=== PATIENT | female | born 1990 | race Caucasian/White ===

== ENCOUNTER 2020-07-29 10:29 | Outpatient (CLI) | payer OTHER, SELFPAY ==
[2020-07-29 11:36] LABS: HCG Quant, Pregnancy 691 mIU/mL (1-3)
== END 2020-07-29 10:30 | disposition home or self-care (01) ==
PROVIDERS: PCP Nurse Practitioner Adult Health; Visit Provider Nurse Practitioner Women's Health
DX: O20.9 Hemorrhage in early pregnancy, unspecified (principal)
CPT/HCPCS: 36415; 84702

== ENCOUNTER 2020-07-31 02:51 | Outpatient (CLI) | payer OTHER, SELFPAY ==
[2020-07-31 12:25] LABS: HCG Quant, Pregnancy 1858 mIU/mL (1-3)
== END 2020-07-31 02:52 | disposition home or self-care (01) ==
LOC: LBO 02:51
PROVIDERS: PCP Nurse Practitioner Adult Health; Visit Provider Nurse Practitioner Women's Health
DX: O20.9 Hemorrhage in early pregnancy, unspecified (principal)
CPT/HCPCS: 36415; 84702

== ENCOUNTER 2020-08-13 04:05 | Outpatient (CLI) | payer OTHER, SELFPAY ==
[2020-08-13 10:27] LABS: Glucose,1 Hr (Glucola) 59 mg/dL (80-140)
== END 2020-08-13 04:06 | disposition home or self-care (01) ==
LOC: LBO 04:05
PROVIDERS: PCP Nurse Practitioner Adult Health; Visit Provider Advanced Practice Midwife
DX: O99.211 Obesity complicating pregnancy, first trimester
CPT/HCPCS: 36415; 82950

== ENCOUNTER 2020-08-31 03:46 | Outpatient (CLI) | payer OTHER, SELFPAY ==
[2020-08-31 10:30] LABS: Abs Immature Grans 0.01 10^3/uL (0.0-0.06); Absolute Basophil Count 0.02 10^3/uL (0.0-0.2); Absolute Eosinophil Count 0.03 10^3/uL (0.0-0.7); Absolute Lymphocyte Count 1.93 10^3/uL (1.2-3.4); Absolute Monocyte Count 0.44 10^3/uL (0.1-0.8); Absolute Neutrophil Count 5.44 10^3/uL (1.2-6.7); Basophils % 0.3; Eosinophils % 0.4; HCT 36.5 % (36.0-46.0); HGB 12.5 g/dL (11.2-15.7); Immature Grans % 0.1; Lymphocytes % 24.5; MCH 30.6 pg (27.0-33.0); MCHC 34.2 % (32.0-36.0); MCV 89.5 fL (80-95); MPV 9.1 fL (8.0-11.0); Monocytes % 5.6; Neutrophils % 69.1; Nucleated RBC 0 %; Platelet Count 321 10^3/uL (130-400); RBC 4.08 10^6/uL (3.93-5.22); RDW 12.2 % (11.7-14.6); RDW-SD 40.1 fL; WBC 7.87 10^3/uL (4.4-10.8)
[2020-08-31 11:38] LABS: TSH (W/Ref FT4) 0.62 uIU/mL (0.36-3.74)
[2020-08-31 11:43] LABS: *AMPHETAMINES SCREEN URINE Negative (Negative); *BARBITURATES SCREEN URINE Negative (Negative); *BENZODIAZEPINES SCREEN URINE Negative (Negative); Cannabinoids THC Negative (Negative); Cocaine Screen,Urine Negative (Negative); METHADONE URINE SCREEN Negative (Negative); OPIATES URINE SCREEN Negative (Negative)
[2020-08-31 11:46] LABS: Tricyclic Antidepressants Negative (Negative)
[2020-08-31 11:48] LABS: ALT 20 U/L (14-59); AST 10 U/L (15-37); Albumin 3.9 g/dL (3.4-5.0); Alkaline Phosphatase 33 U/L (46-116); Anion Gap 11.7 mmol/L (3-11); BUN 6 mg/dL (7-18); Bilirubin, Total 0.4 mg/dL (0.2-1.0); CO2 23.3 mmol/L (21.0-32.0); CREATININE 0.6 mg/dL (0.55-1.02); Calcium 8.9 mg/dL (8.5-10.1); Chloride 103 mmol/L (98-107); Glucose 96 mg/dL (74-106); Potassium 4.1 mmol/L (3.5-5.1); Sodium 138 mmol/L (136-145); Total Protein 7.2 g/dL (6.4-8.2)
[2020-09-01 08:57] LABS: Hepatitis B Surface Ag Negative (Negative)
[2020-09-01 09:26] LABS: Hepatitis C Ab w Rflx HCV PCR Negative (Negative)
[2020-09-01 09:33] LABS: HIV-1/2 Ag & Ab Screen Negative (Negative)
[2020-09-01 10:00] LABS: Varicella IgG Antibody Negative (See Note)
[2020-09-01 10:05] LABS: Rubella IgG Ab (UVM) Positive (See Note)
[2020-09-01 12:02] LABS: HSV 1 DNA Result Negative (Negative); HSV 2 DNA Result Negative (Negative)
[2020-09-01 15:35] LABS: Chlamydia Result Negative (Negative); GC Result Negative (Negative)
[2020-09-01 15:58] LABS: Syphilis Total Ab w/Reflex Nonreactive (Nonreactive)
[2020-09-03 10:10] LABS: Buprenorphine Negative ng/mL (Cutoff: 5.0); Norbuprenorphine Negative ng/mL (Cutoff: 2.5)
== END 2020-08-31 03:47 | disposition home or self-care (01) ==
LOC: LBO 03:46
PROVIDERS: PCP Nurse Practitioner Adult Health; Visit Provider Advanced Practice Midwife
DX: Z34.91 Encounter for supervision of normal pregnancy, unspecified, first trimester (principal); Z11.59 Encounter for screening for other viral diseases; Z11.4 Encounter for screening for human immunodeficiency virus [HIV]; Z01.84 Encounter for antibody response examination; Z11.3 Encounter for screening for infections with a predominantly sexual mode of transmission
CPT/HCPCS: 36415; 80053; 80307; 86787; 86803; 86850; 86900; 86901; 87340; 87389; 87491; 87529; 87591; 84443; 85025; 86762; 86780; 87086

== ENCOUNTER 2020-12-04 12:46 | Observation (INO) | payer OTHER, SELFPAY ==
[2020-12-04 12:58] VITALS: BP 133/71; PULSE 118; RESP 16; TEMP 36.8
[2020-12-04 13:00] VITALS: BP 133/71; PULSE 118
--- NOTE | 2020-12-04 13:04 | HPE_ITS ---
Date of service: 12/04/20 Time of Service: 13:04 Assessment and Plan Assessment and plan (1) Vaginal discharge during in second trimester: Status: Acute Assessment and plan: SSE done, cervix thick and closed, no fluid or blood in vagina. Obtained vaginal pathogen as well as urine culture. Will notify patient of results at home as indicated. Patient will be discharged to home now that she is reassured and will keep next scheduled appointment or call CNM environmental field services technician as needed.JENNIE OB-HPI Labor/Delivery History of Present Illness Reason for Visit: NST Chief Complaint: Other (pink tinged vaginal discharge times one today, no pain.JENNIE). MARILEE Calculator Estimated Delivery Date Method Current WG Current Estimate 03/30/21 Ultrasound #1 23w 3d Other Estimates 03/21/21 LMP (Certain) 24w 5d 04/01/21 Ultrasound #2 23w 1d History of Present Expected Delivery Route/Plan - CNSangita/ collab d/t chronic HTN FOB/ - Juancarlos Castaneda (his first child) BG Varicella non-immune, vaccinate Stage1 chronic HTN without medication: ACOG rec for IOL 38-40 wks Specific Issues/Plan 1. BMI >30, early glucola = 59 2. Low dose ASA starting @ 12 wks for risk of pre-e: nulliparity & BMI of 37 (81mg/162mg alternating) 2a. BP's prior to 20 wk 130's/80's, consistent with chronic HTN, stage 1 3. FOB has acquired (viral) dilated cardiomyopathy, on transplant wait-list 4. Received Covid vaccine; FOB is vaccinated 5. Prefers B.P. taken at the end of the visit. 6. Anxiety - no medications 7. Declines all genetic testing 8. Varicella non immune 9. Serology for HSV is negative for both types 1 & 2 Assessment: History Reviewed & Current Review of Systems All systems reviewed & are unremarkable except as noted in HPI and below PFSH Family History (Updated 08/31/20 @ 08:58 by Antonella Pal CNM) Father Diabetes Hypertension Maternal Grandmother Muscular dystrophy Social History (Updated 07/27/20 @ 09:57 by Lisa Sheets NP) Smoking risk assessment performed?: No current occupation: ICU Nurse at [employer] Do you think of yourself as: straight/heterosexual Female Reproductive History Menstrual control method: natural family planning History History 1 Para 0 Hx # Term Pregnancies 0 Multiple births 0 Hx # Pregnancies 0 Ectopic pregnancies 0 AB induced 0 Hx Number of Living Children 0 AB spontaneous 0 Meds Allergies and Home Medications Allergies Allergy/AdvReac Type Severity Reaction Status Date / Time No Known Allergies Allergy Verified 11/25/20 08:45 Home Medications Medication Instructions Recorded Confirmed Type lactobacillus combination no.8 3 3,000 mmu cells PO DAILY 07/27/20 History billion cell capsule prenat.vits,hui,[id number] 1 tab PO DAILY 07/27/20 History cholecalciferol (vitamin D3) 125 See Rx Instructions PO DAILY 08/12/20 History mcg (5,000 unit) tablet magnesium oxide 400 mg PO DAILY 08/31/20 History aspirin 81 mg tablet,delayed 81 mg PO DAILY #60 tab 11/25/20 11/25/20 Rx release omeprazole 20 mg capsule,delayed 20 mg PO DAILY #30 cap 11/25/20 11/25/20 Rx release Exam Physical Exam Vital signs: Temp Pulse Resp BP 98.2 F 118 H 16 133/71 12/04/20 12:58 12/04/20 13:00 12/04/20 12:58 12/04/20 13:00 Vital Signs Reviewed: Yes Notable Details: HR is elevated but patient was very anxious and stressed.JENNIE Constitutional Constitutional: mild distress and obese Comments: reports she has anxiety at baseline but that seeing some pink on toilet tissue today made her extremely anxious.JENNIE Detailed Labor and Delivery Exam Dilation: 0 Effacement (%): 0 Fields Score: Cervical Points Exam 0 1 2 3 Dilation Closed 1-2cm 3-4 cm 5-6cm Effacement 0-30% 40-50% 60-70% 80% Consistency Firm Medium Soft Station -3 -2 -1,0 +1,+2 Position Posterior Mid Anterior Contraction Frequency(min): soft to palpation Risk Assessment Risk for Shoulder Dystocia Historical/Initial OB: POSITIVE FOR: Pre- BMI>30; NEGATIVE FOR: Pelvic Abnormality, Previous Shoulder Dystocia or Previous Macrosomia Risk for Pre-Eclampsia Date Initiated/Initials: will advise to begin low dose ASA at 12 wks. JK Yes, if one or more: POSTIVE FOR: Chronic HTN; NEGATIVE FOR: Hx Pre-E/Gest HTN, Multiple Gestation, Pre-gestational DM, Renal Disease, Systemic Lupus or APA Syndrome Yes, if 2 or more: POSITIVE FOR: Nulliparity and BMI>30; NEGATIVE FOR: Age>= 35 yrs, >10yr btwn pregnancies, ethinicty, Mother/Sister w/ Pre-E or Previous IUGR Risk for Post- Hemorrhage Initial: NEGATIVE FOR: Multiple Gestation, Previous PPH, Known Clotting Deficiency, Grand Multiparity or Anticoagulation Risks Reviewed Risks Reviewed Upon Admission: No
--- NOTE | 2020-12-04 13:08 | W.PM.OBDISCH ---
Date of service: 12/04/20 Time of Service: 13:08 DS: Diagnosis Discharge Diagnosis (1) Vaginal discharge during in second trimester: Status: Acute Discharge Plan Discharge Details Reason For Visit: NST Attending Provider: Antonella Morgan Primary Care Provider: Zenaida Aviles Home Meds and New Rx's Prescriptions: No Action prenat.vits,hui,[id number] Tablet 1 tab PO DAILY RF: 0 Adult Probiotic 3 billion cell capsule 3,000 mmu cells PO DAILY RF: 0 cholecalciferol (vitamin D3) 125 mcg (5,000 unit) tablet See Rx Instructions PO DAILY RF: 0 aspirin 81 mg tablet,delayed release (DR/EC) 81 mg PO DAILY Qty: 60 RF: 3 omeprazole 20 mg capsule,delayed release(DR/EC) 20 mg PO DAILY Qty: 30 RF: 3 magnesium oxide 400 mg magnesium tablet 400 mg PO DAILY RF: 0 Discharge Instructions Activity:: Activity as Tolerated Activity:: Activity as Tolerated Equipment/Supplies:: No Equipment Needed Diet:: As Tolerated Discharge Data Discharge Physician: Antonella Morgan OB:DS Summary Contraception Discussed Contraception Discussed: No, Status at Discharge Functional status at discharge: independent ambulation Overall status at discharge: patient is back to baseline Mental Status: mental status grossly normal Speech and Movement: speech and movement normal Mood: congruent mood Affect: normal affect Exam Physical Exam Vital signs: Temp Pulse Resp BP 98.2 F 118 H 16 133/71 12/04/20 12:58 12/04/20 13:00 12/04/20 12:58 12/04/20 13:00 Vital Signs Reviewed: Yes Constitutional Constitutional: mild distress Comments: feels great relief when exam is done and there is no evidence of labor. HEENT Exam HEENT Exam: Normal Neck Exam Neck Exam: Not Done Respiratory Exam Respiratory Exam: Normal Cardiovascular Exam Cardiovascular Exam: Normal (mild tachycardia, likely related to axiety.) Abdominal Exam Comments: Fundus at U non tender to palpation. Rectal Exam Rectal Exam: Not Done Exam Patient deferred: external exam and perineal exam Perineum: Normal External: Present normal urethra appearance Comments: vagina normal on inspection with speculum, cervix appears closed and thick, no blood or abnormal discharge in vagina. Small amount of white physiologic appearing discharge noted. Culture for Vaginal pathogens obtaed. 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
--- NOTE | 2020-12-04 13:14 | DSE_ITS ---
Date of service: 12/04/20 Time of Service: 13:31 DS: Diagnosis Discharge Diagnosis (1) Vaginal discharge during in second trimester: Status: Acute Asessment and Plan: reassured once exam revealed no LOF or dilation. Culture for vaginal pathogen obtained and will notify of any abnormal results as indicated. Discharge Plan Disposition Patient Disposition: HOME Condition: Good Discharge Details Reason For Visit: NST Admit Date/Time: 12/04/20 12:46 Admit Provider: Antonella Morgan Attending Provider: Antonella Morgan Primary Care Provider: Stefan,[facility] Hospital Course Hospital Course: FHR 150's by doppler, SSE negative for dilation or blood. Reassured and discharged with warning signs reviewed. Home Meds and New Rx's Prescriptions: No Action prenat.vits,hui,[id number] Tablet 1 tab PO DAILY RF: 0 Adult Probiotic 3 billion cell capsule 3,000 mmu cells PO DAILY RF: 0 cholecalciferol (vitamin D3) 125 mcg (5,000 unit) tablet See Rx Instructions PO DAILY RF: 0 aspirin 81 mg tablet,delayed release (DR/EC) 81 mg PO DAILY Qty: 60 RF: 3 omeprazole 20 mg capsule,delayed release(DR/EC) 20 mg PO DAILY Qty: 30 RF: 3 magnesium oxide 400 mg magnesium tablet 400 mg PO DAILY RF: 0 Discharge Instructions Activity:: Activity as Tolerated Equipment/Supplies:: No Equipment Needed Diet:: As Tolerated Discharge Orders Discharge Orders: Discharge Order (Routine); Ordered 12/04/20 Ordered By: Antonella Morgan Discharge Data Discharge Date/Time-TO BE ENTERED AT DEPARTURE: 12/04/20 13:26 OB:DS Summary Contraception Discussed Contraception Discussed: No, Status at Discharge Functional status at discharge: independent ambulation Overall status at discharge: patient is back to baseline Mental Status: mental status grossly normal Speech and Movement: speech and movement normal Mood: congruent mood Affect: normal affect Exam Physical Exam Vital signs: Temp Pulse Resp BP 98.2 F 118 H 16 133/71 12/04/20 12:58 12/04/20 13:00 12/04/20 12:58 12/04/20 13:00 Vital Signs Reviewed: Yes Constitutional Constitutional: mild distress Comments: much more relaxed after exam was done. HEENT Exam HEENT Exam: Normal Neck Exam Neck Exam: Not Done Respiratory Exam Respiratory Exam: Normal Cardiovascular Exam Cardiovascular Exam: Normal (mild tachycardia due to anxiety.) Abdominal Exam Comments: abdomen benign, fundus soft and non tender. FHT 150's Rectal Exam Rectal Exam: Not Done Exam Comments: SSE reveals cervix is LTC and no blood or abnormal discharge. 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[employer] Do you think of yourself as: straight/heterosexual Female Reproductive History Menstrual control method: natural family planning History History 1 Para 0 Hx # Term Pregnancies 0 Multiple births 0 Hx # Pregnancies 0 Ectopic pregnancies 0 AB induced 0 Hx Number of Living Children 0 AB spontaneous 0 DS: Data Vitals/I&O Vitals and I&O: Vital Signs Temperature 98.2 F 12/04/20 12:58 Pulse 118 H 12/04/20 13:00 Respiratory Rate 16 12/04/20 12:58 Blood Pressure 133/71 12/04/20 13:00 Blood Pressure Mean 91 12/04/20 12:58 Data Completed and Pending Labs on day of discharge: 12/04/20 13:10 Urine - Clean Catch Urine Culture - Pending 12/04/20 13:10 Vaginal Vaginitis Screen - Pending Preliminary micro results at discharge 12/04/20 13:10 Urine Culture - Pending Urine - Clean Catch 12/04/20 13:10 Vaginitis Screen - Pending Vaginal
[2020-12-04 13:21] VITALS: PULSE 101; RESP 18; TEMP 36.6
[2020-12-07 01:04] VITALS: BP 113/69; PULSE 93
== END 2020-12-04 13:26 | disposition home or self-care (01) ==
LOC: OBS 13:15 → BCD 12-07 09:29
PROVIDERS: Admitting Provider Advanced Practice Midwife; PCP Nurse Practitioner Adult Health; Visit Provider Advanced Practice Midwife
DX: O26.892 Other specified pregnancy related conditions, second trimester (principal); N89.8 Other specified noninflammatory disorders of vagina; Z3A.23 23 weeks gestation of pregnancy
CPT/HCPCS: 87086; 87480; 87510; 87660; G0378

== ENCOUNTER 2021-01-07 04:10 | Outpatient (CLI) | payer OTHER, SELFPAY ==
[2021-01-07 10:49] LABS: HCT 33.4 % (36.0-46.0); HGB 11.1 g/dL (11.2-15.7); MCH 30.6 pg (27.0-33.0); MCHC 33.2 % (32.0-36.0); MPV 9.5 fL (8.0-11.0); Platelet Count 290 10^3/uL (130-400); RBC 3.63 10^6/uL (3.93-5.22); RDW 12.8 % (11.7-14.6); WBC 10.26 10^3/uL (4.4-10.8)
[2021-01-07 10:59] LABS: Glucose,1 Hr (Glucola) 180 mg/dL (80-140)
== END 2021-01-07 04:11 | disposition home or self-care (01) ==
LOC: LBO 04:10
PROVIDERS: Advanced Practice Midwife; PCP Nurse Practitioner Adult Health; Visit Provider Advanced Practice Midwife
DX: O99.810 Abnormal glucose complicating pregnancy (principal); Z3A.28 28 weeks gestation of pregnancy
CPT/HCPCS: 36415; 82950; 85027

== ENCOUNTER 2021-03-04 09:13 | Outpatient (CLI) | payer OTHER, SELFPAY ==
[2021-03-04 09:42] VITALS: BP 137/82; PULSE 86
[2021-03-04 09:43] VITALS: BP 137/82; PULSE 86; TEMP 36.8
[2021-03-04 10:10] VITALS: BP 133/82; PULSE 80
[2021-03-04 10:29] LABS: HCT 33.3 % (36.0-46.0); MCH 29.8 pg (27.0-33.0); MCV 90.2 fL (80-95); MPV 9.7 fL (8.0-11.0); Platelet Count 294 10^3/uL (130-400); RBC 3.69 10^6/uL (3.93-5.22); RDW 12.9 % (11.7-14.6); RDW-SD 42.1 fL; WBC 10.21 10^3/uL (4.4-10.8)
[2021-03-04 10:41] VITALS: BP 135/78; PULSE 104
[2021-03-04 10:43] LABS: ALT 30 U/L (14-59); AST 31 U/L (15-37); Albumin 2.9 g/dL (3.4-5.0); Alkaline Phosphatase 83 U/L (46-116); Anion Gap 9.9 mmol/L (3-11); BUN 3 mg/dL (7-18); Bilirubin, Total 0.3 mg/dL (0.2-1.0); CO2 24.1 mmol/L (21.0-32.0); CREATININE 0.6 mg/dL (0.55-1.02); Calcium 9.1 mg/dL (8.5-10.1); Chloride 103 mmol/L (98-107); Glucose 102 mg/dL (74-106); Potassium 3.6 mmol/L (3.5-5.1); Sodium 137 mmol/L (136-145); Total Protein 6.8 g/dL (6.4-8.2); Uric Acid 3.5 mg/dL (2.6-6.0)
[2021-03-04 10:59] LABS: COMMENT (LAB VIEW ONLY) 14.34 mg/dL; PROTEIN < 6.0 mg/dL
[2021-03-04 11:10] VITALS: BP 132/76; PULSE 77
--- NOTE | 2021-03-04 13:53 | W.OBNST ---
Date of service: 03/04/21 Time of Service: 13:53 NST Evaluation Reason for NST Reasons for Nonstress Test: CHRONIC HYPERTENSION Gestational Age Gestational Age in Weeks and Days: 36 Weeks and 2Days Test and Monitor Explained Test/Monitor Explained: Test Explained, Monitor Explained and Patient Verbalized Understanding Vital Signs Blood Pressure: 137/82 Pulse: 86 Temperature: 98.2 F Urine Results Urine Protein: Negative Urine Ketones: Negative Urine Glucose: Negative Urine Blood: Negative NST Information Date on Monitor: 03/04/21 Time on Monitor: 09:38 Date off Monitor: 03/04/21 Time off Monitor: 11:09 Total Time on Monitor: 91 NST Interventions: PO Hydration NST Evaluation Patient States Movement: Present FHR Baseline: 135 Variability: Moderate 6-25 bpm Accelerations: 15x15 Decelerations: None NST Results: Reactive Note NST Note Note: BP 132/76, labs done and nml, discharged to home NST Reviewed and Verified by: Nata Ramos
[2021-03-04 13:54] VITALS: BP 137/82; PULSE 86; TEMP 36.8
[2021-03-04 14:14] LABS: *AMPHETAMINES SCREEN URINE Negative (Negative); *BARBITURATES SCREEN URINE Negative (Negative); *BENZODIAZEPINES SCREEN URINE Negative (Negative); Cannabinoids THC Negative (Negative); Cocaine Screen,Urine Negative (Negative); METHADONE URINE SCREEN Negative (Negative); OPIATES URINE SCREEN Negative (Negative); Tricyclic Antidepressants Negative (Negative)
[2021-03-09 11:19] LABS: Buprenorphine Negative ng/mL (Cutoff: 5.0); Norbuprenorphine Negative ng/mL (Cutoff: 2.5)
== END 2021-03-04 11:26 | disposition home or self-care (01) ==
LOC: BCD 09:18 → OBS 09:33
PROVIDERS: Advanced Practice Midwife; PCP Nurse Practitioner Adult Health; Visit Provider Advanced Practice Midwife
DX: O10.013 Pre-existing essential hypertension complicating pregnancy, third trimester (principal); Z3A.36 36 weeks gestation of pregnancy
CPT/HCPCS: 36415; 80053; 80307; 85027; 59025; 82565; 84156; 84550; 87081

== ENCOUNTER 2021-03-12 07:53 | Outpatient (CLI) | payer OTHER, SELFPAY ==
[2021-03-12 10:11] VITALS: TEMP 36.9
[2021-03-12 10:34] VITALS: BP 139/82; PULSE 93
[2021-03-12 10:38] VITALS: BP 139/82; PULSE 14; TEMP 36.9
[2021-03-12 10:50] VITALS: BP 139/83; PULSE 100
--- NOTE | 2021-03-12 11:04 | W.OBNST ---
Date of service: 03/12/21 Time of Service: 11:04 NST Evaluation Reason for NST Reasons for Nonstress Test: GESTATIONAL HYPERTENSION Gestational Age Gestational Age in Weeks and Days: 37 Weeks and 3Days Test and Monitor Explained Test/Monitor Explained: Test Explained, Monitor Explained and Patient Verbalized Understanding Vital Signs Blood Pressure: 139/82 Pulse: 14 Temperature: 98.4 F NST Information Date on Monitor: 03/12/21 Time on Monitor: 10:10 Date off Monitor: 03/12/21 NST Interventions: PO Hydration NST Evaluation Patient States Movement: Present FHR Baseline: 140 Variability: Moderate 6-25 bpm Accelerations: 15x15 Decelerations: None NST Results: Reactive Note NST Note Note: Continue 2 x weekly NST. IOL planned at 38-39 weeks. NST Reviewed and Verified by: Antonella Pal
[2021-03-12 11:05] VITALS: BP 139/82; PULSE 14; TEMP 36.9
--- NOTE | 2021-03-12 11:54 | W.OBNST ---
Date of service: 03/12/21 Time of Service: 11:54 NST Evaluation Reason for NST Reasons for Nonstress Test: GESTATIONAL HYPERTENSION Gestational Age Gestational Age in Weeks and Days: 37 Weeks and 3Days Test and Monitor Explained Test/Monitor Explained: Test Explained, Monitor Explained and Patient Verbalized Understanding Vital Signs Blood Pressure: 139/82 Pulse: 14 Temperature: 98.4 F NST Information Date on Monitor: 03/12/21 Time on Monitor: 10:10 Date off Monitor: 03/12/21 NST Interventions: PO Hydration NST Evaluation Patient States Movement: Present FHR Baseline: 140 Variability: Moderate 6-25 bpm Accelerations: 15x15 Decelerations: None NST Results: Reactive Note NST Note Note: BP stable, is scheduled for IOL on 03/24/21. Is aware of pre-eclampsia warning signs. Will do twice weekly NST and return to office for visit as scheduled. JENNIE NST Reviewed and Verified by: Antonella Morgan
[2021-03-12 11:55] VITALS: BP 139/82; PULSE 14; TEMP 36.9
== END 2021-03-12 10:56 | disposition home or self-care (01) ==
LOC: BCD 08:06 → OBS 10:06
PROVIDERS: PCP Nurse Practitioner Adult Health; Visit Provider Advanced Practice Midwife
DX: O13.3 Gestational [pregnancy-induced] hypertension without significant proteinuria, third trimester (principal); Z3A.37 37 weeks gestation of pregnancy
CPT/HCPCS: 59025

== ENCOUNTER 2021-03-16 06:03 | Outpatient (CLI) | payer OTHER, SELFPAY ==
[2021-03-16 10:03] VITALS: BP 140/86; PULSE 103; TEMP 36.8
[2021-03-16 10:51] VITALS: BP 127/84; PULSE 112
[2021-03-16 11:13] LABS: HCT 33.6 % (36.0-46.0); MCH 29.4 pg (27.0-33.0); MCHC 32.7 % (32.0-36.0); MCV 89.8 fL (80-95); MPV 9.8 fL (8.0-11.0); Platelet Count 278 10^3/uL (130-400); RBC 3.74 10^6/uL (3.93-5.22); RDW 12.4 % (11.7-14.6); RDW-SD 40.3 fL; WBC 9.67 10^3/uL (4.4-10.8)
[2021-03-16 11:25] LABS: COMMENT (LAB VIEW ONLY) 23.16 mg/dL; PROTEIN < 6.0 mg/dL
[2021-03-16 11:31] LABS: ALT 20 U/L (14-59); AST 16 U/L (15-37); Albumin 2.6 g/dL (3.4-5.0); Alkaline Phosphatase 90 U/L (46-116); Anion Gap 10.9 mmol/L (3-11); BUN 5 mg/dL (7-18); Bilirubin, Total 0.2 mg/dL (0.2-1.0); CO2 22.1 mmol/L (21.0-32.0); CREATININE 0.7 mg/dL (0.55-1.02); Calcium 8.8 mg/dL (8.5-10.1); Chloride 103 mmol/L (98-107); Glucose 124 mg/dL (74-106); Potassium 3.7 mmol/L (3.5-5.1); Sodium 136 mmol/L (136-145); Total Protein 6.5 g/dL (6.4-8.2)
[2021-03-16 11:39] LABS: Uric Acid 3.7 mg/dL (2.6-6.0)
--- NOTE | 2021-03-16 12:34 | W.OBNST ---
Date of service: 03/16/21 Time of Service: 12:34 NST Evaluation Reason for NST Reasons for Nonstress Test: GESTATIONAL HYPERTENSION Gestational Age Gestational Age in Weeks and Days: 38 Weeks and 0Days Test and Monitor Explained Test/Monitor Explained: Test Explained, Monitor Explained and Patient Verbalized Understanding Vital Signs Blood Pressure: 127/84 Pulse: 112 Temperature: 98.2 F NST Information Date on Monitor: 03/16/21 Time on Monitor: 10:04 Date off Monitor: 03/16/21 Time off Monitor: 10:35 Total Time on Monitor: 31 NST Interventions: PO Hydration NST Evaluation Patient States Movement: Present FHR Baseline: 140 Variability: Moderate 6-25 bpm Accelerations: 15x15 Decelerations: None NST Results: Reactive Note NST Note Note: Preeclampsia labs drawn. I will call Nataliya with results. Symptoms of preeclampsia reviewed. Nataliya has decided to stop working at this time. IOL planned for 03/24. NST Reviewed and Verified by: Antonella Pal
[2021-03-16 12:42] VITALS: BP 127/84; PULSE 112; TEMP 36.8
== END 2021-03-16 11:00 | disposition home or self-care (01) ==
LOC: BCD 06:04 → OBS 10:02
PROVIDERS: PCP Nurse Practitioner Adult Health; Visit Provider Advanced Practice Midwife
DX: O13.3 Gestational [pregnancy-induced] hypertension without significant proteinuria, third trimester (principal); Z3A.38 38 weeks gestation of pregnancy
CPT/HCPCS: 59025; 36415; 80053; 85027; 82565; 84156; 84550

== ENCOUNTER 2021-03-19 07:28 | Outpatient (CLI) | payer OTHER, SELFPAY ==
[2021-03-19 10:21] VITALS: BP 133/83; PULSE 105; TEMP 36.5
[2021-03-19 13:22] VITALS: BP 133/83; PULSE 105; TEMP 36.5
--- NOTE | 2021-03-19 13:22 | W.OBNST ---
Date of service: 03/19/21 Time of Service: 13:22 NST Evaluation Reason for NST Reasons for Nonstress Test: GESTATIONAL HYPERTENSION Gestational Age Gestational Age in Weeks and Days: 38 Weeks and 3Days Test and Monitor Explained Test/Monitor Explained: Test Explained, Monitor Explained and Patient Verbalized Understanding Vital Signs Blood Pressure: 133/83 Pulse: 105 Temperature: 97.7 F Urine Results Urine Protein: Negative Urine Ketones: Negative Urine Glucose: Negative Urine Blood: Negative NST Information Date on Monitor: 03/19/21 Time on Monitor: 10:27 Date off Monitor: 03/19/21 Time off Monitor: 10:45 Total Time on Monitor: 18 NST Interventions: PO Hydration NST Evaluation Patient States Movement: Present FHR Baseline: 150 Variability: Moderate 6-25 bpm Accelerations: 15x15 Decelerations: None NST Results: Reactive Note NST Note NST Reviewed and Verified by: Nata Ramos
== END 2021-03-19 11:15 | disposition home or self-care (01) ==
LOC: BCD 07:30 → OBS 10:17
PROVIDERS: PCP Nurse Practitioner Adult Health; Visit Provider Advanced Practice Midwife
DX: O13.3 Gestational [pregnancy-induced] hypertension without significant proteinuria, third trimester (principal); Z3A.38 38 weeks gestation of pregnancy
CPT/HCPCS: 59025

== ENCOUNTER 2021-03-23 07:09 | Outpatient (CLI) | payer OTHER, SELFPAY ==
[2021-03-23 09:07] VITALS: BP 152/99; PULSE 108; TEMP 36.7
[2021-03-23 09:29] VITALS: BP 152/99; PULSE 108
[2021-03-23 09:34] VITALS: BP 128/74; PULSE 101
--- NOTE | 2021-03-23 10:18 | W.OBNST ---
Date of service: 03/23/21 Time of Service: 10:18 NST Evaluation Reason for NST Reasons for Nonstress Test: GESTATIONAL HYPERTENSION Gestational Age Gestational Age in Weeks and Days: 39 Weeks and 0Days Test and Monitor Explained Test/Monitor Explained: Test Explained, Monitor Explained and Patient Verbalized Understanding Vital Signs Blood Pressure: 128/74 (pt's upper left arm measures 36 cm, appropriate for large red cuff) Pulse: 108 Temperature: 98.1 F NST Information Date on Monitor: 03/23/21 Time on Monitor: 09:08 Date off Monitor: 03/23/21 Time off Monitor: 09:44 Total Time on Monitor: 36 NST Interventions: PO Hydration NST Evaluation Patient States Movement: Present Variability: Moderate 6-25 bpm Accelerations: 15x15 Decelerations: None NST Results: Reactive Note NST Note Note: First BP taken with regular cuff was elevated, repeated with large cuff which is the appropriate one for pt's arm circumference and was normotensive. Pt denied SMITH, visual changes, or abd pain, reports increased stress at home and prodromal sx for 2 days SVE performed: 1/50% posterior and soft, vtx -4 Pt to call tomorrow at 1500 to see if she will be able to start cervical ripening tomorrow evening. NST Reviewed and Verified by: Nata Ramos
[2021-03-23 10:22] VITALS: BP 128/74; PULSE 108; TEMP 36.7
== END 2021-03-23 10:05 | disposition home or self-care (01) ==
LOC: BCD 07:10 → OBS 09:06
PROVIDERS: PCP Nurse Practitioner Adult Health; Visit Provider Advanced Practice Midwife
DX: O13.3 Gestational [pregnancy-induced] hypertension without significant proteinuria, third trimester (principal); Z3A.39 39 weeks gestation of pregnancy
CPT/HCPCS: 59025

== ENCOUNTER 2021-03-24 16:57 | Inpatient (IN) | payer OTHER, SELFPAY ==
[2021-03-24 17:27] VITALS: BP 134/84; PULSE 115; RESP 18; TEMP 36.6
[2021-03-24] MEDS: miSOPROStol 50 MCG TAB (17:37)
--- NOTE | 2021-03-24 17:38 | HPE_ITS ---
Date of service: 03/24/21 Time of Service: 17:38 Assessment and Plan Assessment and plan (1) Stage 1 hypertension: Start date: 03/24/21 Start time: 17:47 Status: Acute Assessment and plan: Admission for induction of labor at 39w1d due to Stage I CHTN. No signs or symptoms of pre-eclampsia. Plan misoprostol oral 50 mc g and repeat every 4-6 hours as needed for 3 doses. Pre-eclampsia labs ordered. KH (2) : Start date: 03/24/21 Start time: 17:48 Status: Acute Assessment and plan: Admitted for IOL. Dr. Lai is MD data reduction technician and is aware of admission and plan of care. KH OB-HPI Labor/Delivery History of Present Illness Reason for Visit: complicated by chronic HTN Chief Complaint: Scheduled Induction of Labor Indication for Induction: Chronic Hypertension. MARILEE Calculator Estimated Delivery Date Method Current WG Current Estimate 03/30/21 Ultrasound #1 39w 1d Other Estimates 03/21/21 LMP (Certain) 40w 3d 04/01/21 Ultrasound #2 38w 6d Comments: Nataliya and her present for scheduled IOL due to Stage I CHTN complicating . She continues to deny any signs of pre-eclampsia and is over all feeling well and prepared to move forward with induction. We have discussed misoprostol PO and the potential risks, benefits and alternatives as well as potential side effects and she agrees with plan. Dr. Lai has also been made aware of patient's admission and agrees to plan. JENNIE History of Present Expected Delivery Route/Plan - ANA MARIA/ collab d/t chronic HTN FOB/ - Juancarlos Castaneda (his first child) BG GBS negative Varicella non-immune, vaccinate Stage1 chronic HTN without medication: ACOG rec for IOL 38-40 wks Specific Issues/Plan 1. BMI >30, early glucola = 59, glucola @ 28 eap=487, declines 3 hr GTT, will be gin QID monitoring x 2 wks 1a. 2 wks of QID home monitoring were all WNL, no further monitoring indicated 2. Low dose ASA starting @ 12 wks for risk of pre-e: nulliparity & BMI of 37 (81mg/162mg alternating) 2a. BP's prior to 20 wk 130's/80's, consistent with chronic HTN, stage 1 2b. Prefers BP taken at the end of the visit. Taking Vit D and Mag 400 qd 2c. Weekly NSTs scheduled. IOL scheduled for 03/24 3. FOB has acquired (viral) dilated cardiomyopathy, on transplant wait-list 4. Received Covid vaccine; FOB is vaccinated 5. Anxiety - no medications 6. Declines all genetic testing 9. Varicella non immune- offer vaccine post partum 10. Serology for HSV is negative for both types 1 & 2 Assessment: History Reviewed & Current Informed Consent Informed Consent: Induction of Labor Review of Systems All systems reviewed & are unremarkable except as noted in HPI and below PFSH Medical History Labial irritation Vaginal discharge during in second trimester Family History Father Diabetes Hypertension Maternal Grandmother Muscular dystrophy Social History Smoking/Tobacco Use Status: Never Smoking risk assessment performed?: Yes Alcohol Intake: former Drug use: Never Substance use type: does not use Details: Alcohol use rarely prior to current occupation: ICU Nurse at [employer] Do you think of yourself as: straight/heterosexual Female Reproductive History Menstrual control method: natural family planning History History 1 Para 0 Hx # Term Pregnancies 0 Multiple births 0 Hx # Pregnancies 0 Ectopic pregnancies 0 AB induced 0 Hx Number of Living Children 0 AB spontaneous 0 Meds Allergies and Home Medications Allergies Allergy/AdvReac Type Severity Reaction Status Date / Time No Known Allergies Allergy Verified 03/24/21 17:45 Home Medications Medication Instructions Recorded Confirmed Type lactobacillus combination no.8 3 3,000 mmu cells PO DAILY 07/27/20 03/24/21 History billion cell capsule prenat.vits,hui,eft-yjzs-ligvz 1 tab PO DAILY 07/27/20 03/24/21 History cholecalciferol (vitamin D3) 125 See Rx Instructions PO DAILY 08/12/20 03/24/21 History mcg (5,000 unit) tablet magnesium oxide 400 mg PO DAILY 08/31/20 03/24/21 History aspirin 81 mg tablet,delayed 81 mg PO DAILY #60 tab 11/25/20 03/24/21 Rx release omeprazole 20 mg capsule,delayed 20 mg PO DAILY #30 cap 11/25/20 03/24/21 Rx release Exam Physical Exam Vital signs: Pulse BP 115 H 134/84 03/24/21 17:27 03/24/21 17:27 Vital Signs Reviewed: Yes Constitutional Constitutional: no acute distress and obese Comments: patient is anxious and is using relaxation methods to calm herself which is common for her. Detailed Labor and Delivery Exam Dilation: 1 Effacement (%): 50 station: -2 Cervix position: mid Consistency: soft Kennedy Score: Cervical Points Exam 0 1 2 3 Dilation Closed 1-2cm 3-4 cm 5-6cm Effacement 0-30% 40-50% 60-70% 80% Consistency Firm Medium Soft Station -3 -2 -1,0 +1,+2 Position Posterior Mid Anterior KENNEDY Score(Cervical Ripeness Score): 6 Amniotic Membrane Status: Intact Contraction Frequency(min): irritability noted on toco, patient is comfortable and not feeling pain Fetus A Heart Rate Baseline: 145 Monitor Accelerations: 15 X 15 Monitor Decelerations: None Variability: Moderate (6-25 BPM) Presentation: Cephalic Categories: Category I Est. Weight: 7 lb 8 oz Neck Exam Neck Exam: Normal Chest/Brest/Axilla Exam Chest Exam: Normal Breast Exam Breast Exam: Not Done Respiratory Exam Respiratory Exam: Normal Cardiovascular Exam Cardiovascular Exam: Abnormal (mild tachycardia, patient reports anxiety, normal rate and rhythym) Abdominal Exam Abdominal Exam: Normal Rectal Exam Rectal Exam: Not Done Exam Exam: Normal Extremities Exam Extremities Exam: Normal Back/Spine/Pelvis Exam Back Exam: Not Done Pelvis Adequate: Yes Skin Exam Skin Exam: Normal Neurological Exam Neurological Exam: Normal Psychiatric Exam Psychiatric Exam: Normal (anxious) Results Results Group Beta Strep: Negative Blood Type: A+ Rubella Status: Immune Varicella Immunity: Nonimmune Lab Results: recent testing for pre-eclampsia on 03/16 revealed all negative tests. Risk Assessment Risk for Shoulder Dystocia Historical/Initial OB: POSITIVE FOR: Pre- BMI>30; NEGATIVE FOR: Pelvic Abnormality, Previous Shoulder Dystocia or Previous Macrosomia 40 Weeks: NEGATIVE FOR: EFW> 4500 gms, Maternal Weight Gain >40lb or Post Dates Increased Risk?: No Delivery Plan @ 40 wks: IOL 03/24/21 expect NVD. JENNIE Risk for Pre-Eclampsia Daily Dose ASA Indicated: Yes Date Initiated/Initials: will advise to begin low dose ASA at 12 wks. JK Yes, if one or more: POSTIVE FOR: Chronic HTN; NEGATIVE FOR: Hx Pre-E/Gest HTN, Multiple Gestation, Pre-gestational DM, Renal Disease, Systemic Lupus or APA Syndrome Yes, if 2 or more: POSITIVE FOR: Nulliparity and BMI>30; NEGATIVE FOR: Age>= 35 yrs, >10yr btwn pregnancies, ethinicty, Mother/Sister w/ Pre-E or Previous IUGR Risk for Post- Hemorrhage Initial: NEGATIVE FOR: Multiple Gestation, Previous PPH, Known Clotting Deficiency, Grand Multiparity or Anticoagulation At Risk?: No Interventions: mild risk based on induction of labor. JENNIE Counseled re: Active Management: Yes Date/Initials: 03/24/21 JENNIE Risks Reviewed Risks Reviewed Upon Admission: Yes
[2021-03-24 18:02] LABS: HGB 10.9 g/dL (11.2-15.7); MCH 29.1 pg (27.0-33.0); MCV 88.2 fL (80-95); MPV 10.2 fL (8.0-11.0); Platelet Count 274 10^3/uL (130-400); RBC 3.74 10^6/uL (3.93-5.22); RDW 12.3 % (11.7-14.6); RDW-SD 40.1 fL; WBC 11.63 10^3/uL (4.4-10.8)
[2021-03-24 18:12] LABS: ALT 18 U/L (14-59); AST 14 U/L (15-37); Albumin 2.8 g/dL (3.4-5.0); Alkaline Phosphatase 107 U/L (46-116); BUN 6 mg/dL (7-18); Bilirubin, Total 0.2 mg/dL (0.2-1.0); CREATININE 0.6 mg/dL (0.55-1.02); Calcium 9.2 mg/dL (8.5-10.1); Chloride 104 mmol/L (98-107); Glucose 91 mg/dL (74-106); Potassium 3.8 mmol/L (3.5-5.1); Sodium 137 mmol/L (136-145); Total Protein 6.8 g/dL (6.4-8.2)
[2021-03-24 18:17] LABS: Source Nasal/Nares
[2021-03-24 19:07] LABS: COVID-19 PCR Negative (Negative)
[2021-03-24 19:32] VITALS: BP 145/78; PULSE 88; RESP 16; TEMP 36.6; O2SAT 99
[2021-03-24 19:38] LABS: PROTEIN < 6.0 mg/dL
[2021-03-24 19:39] LABS: COMMENT (LAB VIEW ONLY) 29.33 mg/dL
[2021-03-24 21:43] VITALS: BP 133/84; PULSE 74; TEMP 36.7
--- NOTE | 2021-03-24 21:48 | W.PM.OBNL1 ---
Date of service: 03/24/21 Time of Service: 21:48 Informed Consent Informed Consent: Induction of Labor Contractions Monitor Mode: External Contraction Frequency(min): 2-3 Contraction Duration(sec): 60 Intensity: Mild/Moderate Fetus A Monitor: External (US) Heart Rate Baseline: 125 Variability: Moderate (6-25 BPM) Categories: Category I Decelerations: None Amniotic Membrane Status: Intact Assessment and Plan Assessment and plan (1) Encounter for induction of labor: Start date: 03/24/21 Start time: 21:51 Status: Acute Assessment and plan: will hold second dose of misoprostol at this time and reassess in 2 hours or prn. KH (2) Stage 1 hypertension: Start date: 03/24/21 Start time: 21:52 Status: Acute Assessment and plan: pre-eclampsia labs are normal, VS stable IOL started continue present management. Objective Abnormal lab results 03/24/21 03/24/21 Range/Units 17:42 17:42 WBC 11.63 H (4.4-10.8) 10^3/uL RBC 3.74 L (3.93-5.22) 10^6/uL Hgb 10.9 L (11.2-15.7) g/dL Hct 33.0 L (36.0-46.0) % BUN 6 L (7-18) mg/dL AST 14 L (15-37) U/L Albumin 2.8 L (3.4-5.0) g/dL Temp Pulse Resp BP Pulse Ox 97.9 F 74 16 133/84 99 03/24/21 19:32 03/24/21 21:43 03/24/21 19:32 03/24/21 21:43 03/24/21 19:32 Laboratory Results WBC 11.63 10^3/uL (4.4-10.8) H 03/24/21 17:42 RBC 3.74 10^6/uL (3.93-5.22) L 03/24/21 17:42 Hgb 10.9 g/dL (11.2-15.7) L 03/24/21 17:42 Hct 33.0 % (36.0-46.0) L 03/24/21 17:42 MCV 88.2 fL (80-95) 03/24/21 17:42 MCH 29.1 pg (27.0-33.0) 03/24/21 17:42 MCHC 33.0 % (32.0-36.0) 03/24/21 17:42 RDW 12.3 % (11.7-14.6) 03/24/21 17:42 Plt Count 274 10^3/uL (130-400) 03/24/21 17:42 MPV 10.2 fL (8.0-11.0) 03/24/21 17:42 Sodium 137 mmol/L (136-145) 03/24/21 17:42 Potassium 3.8 mmol/L (3.5-5.1) 03/24/21 17:42 Chloride 104 mmol/L (98-107) 03/24/21 17:42 Carbon Dioxide 22.0 mmol/L (21.0-32.0) 03/24/21 17:42 Anion Gap 11.0 mmol/L (3-11) 03/24/21 17:42 BUN 6 mg/dL (7-18) L 03/24/21 17:42 Creatinine 0.6 mg/dL (0.55-1.02) 03/24/21 17:42 Estimated GFR/1.73 m2 >= 60.00 (mL/min/1.73m2) 03/24/21 17:42 Glucose 91 mg/dL (74-106) 03/24/21 17:42 Calcium 9.2 mg/dL (8.5-10.1) 03/24/21 17:42 Total Bilirubin 0.2 mg/dL (0.2-1.0) 03/24/21 17:42 AST 14 U/L (15-37) L 03/24/21 17:42 ALT 18 U/L (14-59) 03/24/21 17:42 Alkaline Phosphatase 107 U/L (46-116) 03/24/21 17:42 Total Protein 6.8 g/dL (6.4-8.2) 03/24/21 17:42 Albumin 2.8 g/dL (3.4-5.0) L 03/24/21 17:42 Ur Random Creatinine 29.33 mg/dL 03/24/21 18:45 U Random Total Protein < 6.0 mg/dL 03/24/21 18:45 U [place] Prot/Creat Ratio 10/13/21 18:45 COVID-19 Source Nasal/Nares 03/24/21 17:30 SARS-CoV-2 (PCR) Negative (Negative) 03/24/21 17:30 Patient ABO/Rh A Positive 03/24/21 17:42 Antibody Screen NEGATIVE 03/24/21 17:42 Vital Signs Reviewed: Yes Notable Details: labs within normal limits Subjective Interval history since last seen: feeling contractions and working through them with position changes and meditation. Denies LOF or vaginal bleeding. KH Results Hemoglobin/Hematocrit: Hgb 10.9 g/dL (11.2-15.7) L 03/24/21 17:42 Hct 33.0 % (36.0-46.0) L 03/24/21 17:42 Abnormal Lab Findings: Abnormal Labs 03/24/21 03/24/21 17:42 17:42 WBC 11.63 H RBC 3.74 L Hgb 10.9 L Hct 33.0 L BUN 6 L AST 14 L Albumin 2.8 L
[2021-03-25] VITALS (50 sets, daily range): BP systolic 108–152; BP diastolic 55–99; PULSE 56–130; RESP 16–20; TEMP 36.4–37.1; O2SAT 95–100; BMI 40.8
--- NOTE | 2021-03-25 00:36 | W.PM.OBNL1 ---
Date of service: 03/25/21 Time of Service: 00:36 Informed Consent Informed Consent: Induction of Labor Pelvic Exam Dilation: 1.5 Effacement (%): 70 station: -1 Cervix Position: posterior Consistency: soft Vaginal Exam Presentation: Cephalic Contractions Monitor Mode: External Contraction Frequency(min): 1.5-3 Contraction Duration(sec): 60-80 Intensity: Mild/Moderate Fetus A Monitor: External (US) Heart Rate Baseline: 125 Variability: Moderate (6-25 BPM) Categories: Category I Accelerations: 15 X 15 Decelerations: None Assessment and Plan Assessment and plan (1) Encounter for induction of labor: Start date: 03/25/21 Start time: 00:39 Status: Acute Assessment and plan: due to frequency of contractions there is no need for additional medications at this time. pain management options reviewed and emotional support offered. will continue to support labor and reassess in 2 hours or prn. If patient is able to sleep for 4 hours we will leave her undisturbed. VS are stable. KH Objective Abnormal lab results 03/24/21 03/24/21 Range/Units 17:42 17:42 WBC 11.63 H (4.4-10.8) 10^3/uL RBC 3.74 L (3.93-5.22) 10^6/uL Hgb 10.9 L (11.2-15.7) g/dL Hct 33.0 L (36.0-46.0) % BUN 6 L (7-18) mg/dL AST 14 L (15-37) U/L Albumin 2.8 L (3.4-5.0) g/dL Temp Pulse Resp BP Pulse Ox 98.1 F 72 16 128/72 99 03/24/21 21:43 03/25/21 00:22 03/24/21 19:32 03/25/21 00:22 03/24/21 19:32 Laboratory Results WBC 11.63 10^3/uL (4.4-10.8) H 03/24/21 17:42 RBC 3.74 10^6/uL (3.93-5.22) L 03/24/21 17:42 Hgb 10.9 g/dL (11.2-15.7) L 03/24/21 17:42 Hct 33.0 % (36.0-46.0) L 03/24/21 17:42 MCV 88.2 fL (80-95) 03/24/21 17:42 MCH 29.1 pg (27.0-33.0) 03/24/21 17:42 MCHC 33.0 % (32.0-36.0) 03/24/21 17:42 RDW 12.3 % (11.7-14.6) 03/24/21 17:42 Plt Count 274 10^3/uL (130-400) 03/24/21 17:42 MPV 10.2 fL (8.0-11.0) 03/24/21 17:42 Sodium 137 mmol/L (136-145) 03/24/21 17:42 Potassium 3.8 mmol/L (3.5-5.1) 03/24/21 17:42 Chloride 104 mmol/L (98-107) 03/24/21 17:42 Carbon Dioxide 22.0 mmol/L (21.0-32.0) 03/24/21 17:42 Anion Gap 11.0 mmol/L (3-11) 03/24/21 17:42 BUN 6 mg/dL (7-18) L 03/24/21 17:42 Creatinine 0.6 mg/dL (0.55-1.02) 03/24/21 17:42 Estimated GFR/1.73 m2 >= 60.00 (mL/min/1.73m2) 03/24/21 17:42 Glucose 91 mg/dL (74-106) 03/24/21 17:42 Calcium 9.2 mg/dL (8.5-10.1) 03/24/21 17:42 Total Bilirubin 0.2 mg/dL (0.2-1.0) 03/24/21 17:42 AST 14 U/L (15-37) L 03/24/21 17:42 ALT 18 U/L (14-59) 03/24/21 17:42 Alkaline Phosphatase 107 U/L (46-116) 03/24/21 17:42 Total Protein 6.8 g/dL (6.4-8.2) 03/24/21 17:42 Albumin 2.8 g/dL (3.4-5.0) L 03/24/21 17:42 Ur Random Creatinine 29.33 mg/dL 03/24/21 18:45 U Random Total Protein < 6.0 mg/dL 03/24/21 18:45 U [place] Prot/Creat Ratio 03/24/21 18:45 COVID-19 Source Nasal/Nares 03/24/21 17:30 SARS-CoV-2 (PCR) Negative (Negative) 03/24/21 17:30 Patient ABO/Rh A Positive 03/24/21 17:42 Antibody Screen NEGATIVE 03/24/21 17:42 Subjective Interval history since last seen: Nataliya is struggling with pain and her ability to manage it. She prefers to avoid medication as she does not like the feeling of being woozy. She is willing to do position changes and may try nitrous oxide. We discussed all pain management options, including epidural if desires. Will continue to support labor. KH Results Hemoglobin/Hematocrit: Hgb 10.9 g/dL (11.2-15.7) L 03/24/21 17:42 Hct 33.0 % (36.0-46.0) L 03/24/21 17:42 Abnormal Lab Findings: Abnormal Labs 03/24/21 03/24/21 17:42 17:42 WBC 11.63 H RBC 3.74 L Hgb 10.9 L Hct 33.0 L BUN 6 L AST 14 L Albumin 2.8 L
--- NOTE | 2021-03-25 06:19 | PGE_ITS ---
Date of service: 03/25/21 Time of Service: 06:19 Informed Consent Informed Consent: Induction of Labor Pelvic Exam Comments: VE deferred as contractions have spaced out. Contractions Monitor Mode: Palpation Contraction Frequency(min): irregular Fetus A Assessment Note: currently off monitor to rest, tracings have been consistently CAT I. JENNIE Assessment and Plan Assessment and plan (1) Encounter for induction of labor: Start date: 03/25/21 Start time: 06:22 Status: Acute Assessment and plan: Will allow patient to have breakfast and shower if desired then plan to begin pitocin at 2 mu and increase by 2 mu every 30 minutes until active labor. We discussed its use, risks, benefits and alternatives. Patient agrees to this plan. We discussed options for pain management and she would like to start with nitrous and if needed move to epidural. JENNIE Objective Abnormal lab results 03/24/21 03/24/21 Range/Units 17:42 17:42 WBC 11.63 H (4.4-10.8) 10^3/uL RBC 3.74 L (3.93-5.22) 10^6/uL Hgb 10.9 L (11.2-15.7) g/dL Hct 33.0 L (36.0-46.0) % BUN 6 L (7-18) mg/dL AST 14 L (15-37) U/L Albumin 2.8 L (3.4-5.0) g/dL Temp Pulse Resp BP Pulse Ox 97.9 F 56 L 18 130/83 99 03/25/21 03:48 03/25/21 03:48 03/25/21 03:48 03/25/21 03:48 03/24/21 19:32 Laboratory Results WBC 11.63 10^3/uL (4.4-10.8) H 03/24/21 17:42 RBC 3.74 10^6/uL (3.93-5.22) L 03/24/21 17:42 Hgb 10.9 g/dL (11.2-15.7) L 03/24/21 17:42 Hct 33.0 % (36.0-46.0) L 03/24/21 17:42 MCV 88.2 fL (80-95) 03/24/21 17:42 MCH 29.1 pg (27.0-33.0) 03/24/21 17:42 MCHC 33.0 % (32.0-36.0) 03/24/21 17:42 RDW 12.3 % (11.7-14.6) 03/24/21 17:42 Plt Count 274 10^3/uL (130-400) 03/24/21 17:42 MPV 10.2 fL (8.0-11.0) 03/24/21 17:42 Sodium 137 mmol/L (136-145) 03/24/21 17:42 Potassium 3.8 mmol/L (3.5-5.1) 03/24/21 17:42 Chloride 104 mmol/L (98-107) 03/24/21 17:42 Carbon Dioxide 22.0 mmol/L (21.0-32.0) 03/24/21 17:42 Anion Gap 11.0 mmol/L (3-11) 03/24/21 17:42 BUN 6 mg/dL (7-18) L 03/24/21 17:42 Creatinine 0.6 mg/dL (0.55-1.02) 03/24/21 17:42 Estimated GFR/1.73 m2 >= 60.00 (mL/min/1.73m2) 03/24/21 17:42 Glucose 91 mg/dL (74-106) 03/24/21 17:42 Calcium 9.2 mg/dL (8.5-10.1) 03/24/21 17:42 Total Bilirubin 0.2 mg/dL (0.2-1.0) 03/24/21 17:42 AST 14 U/L (15-37) L 03/24/21 17:42 ALT 18 U/L (14-59) 03/24/21 17:42 Alkaline Phosphatase 107 U/L (46-116) 03/24/21 17:42 Total Protein 6.8 g/dL (6.4-8.2) 03/24/21 17:42 Albumin 2.8 g/dL (3.4-5.0) L 03/24/21 17:42 Ur Random Creatinine 29.33 mg/dL 03/24/21 18:45 U Random Total Protein < 6.0 mg/dL 03/24/21 18:45 U [place] Prot/Creat Ratio 03/24/21 18:45 COVID-19 Source Nasal/Nares 03/24/21 17:30 SARS-CoV-2 (PCR) Negative (Negative) 03/24/21 17:30 Patient ABO/Rh A Positive 03/24/21 17:42 Antibody Screen NEGATIVE 03/24/21 17:42 Subjective Interval history since last seen: patient has been able to sleep for short periods of time and feels more organized and rested to move forward. She is still feeling contractions but they have spaced out at this time. Denies ROM and reports baby is active. She would like to have breakfast and is then ready to move to pitocin. KH Interventions Induction Indication: Chronic Hypertension , Type of Induction: Pitocin , Induction Note: will begin pitocin after nursing shift change and patient has had opportunity to get breakfast. KH . Results Hemoglobin/Hematocrit: Hgb 10.9 g/dL (11.2-15.7) L 03/24/21 17:42 Hct 33.0 % (36.0-46.0) L 03/24/21 17:42 Abnormal Lab Findings: Abnormal Labs 03/24/21 03/24/21 17:42 17:42 WBC 11.63 H RBC 3.74 L Hgb 10.9 L Hct 33.0 L BUN 6 L AST 14 L Albumin 2.8 L
[2021-03-25] MEDS: Lactated Ringers 1,000 ML 125 ML IV ×2 (09:28→16:01)
[2021-03-25] MEDS: Oxytocin/Normal Saline 30 UNIT/500 ML BAG 2 UNITS IV (09:28)
--- NOTE | 2021-03-25 11:28 | W.PM.OBNL1 ---
Date of service: 03/25/21 Time of Service: 11:28 Informed Consent Informed Consent: Induction of Labor Pelvic Exam Comments: VE deferred at this time and will likely defer until desire for epidural or even after epidural is placed as patient has difficulty with the discomfort of the exam. KH Contractions Monitor Mode: External Contraction Frequency(min): 3 min Contraction Duration(sec): 60-90 Intensity: Mild/Moderate Fetus A Monitor: External (US) Heart Rate Baseline: 150 Variability: Moderate (6-25 BPM) Categories: Category I Accelerations: 10 X 10 Decelerations: None Amniotic Membrane Status: Intact Assessment and Plan Assessment and plan (1) Encounter for induction of labor: Status: Acute Assessment and plan: pitocin is at 8 mu and patient is tolerating well with nitrous use. She is planning to get her pre procedure epidural visit with anesthesia completed and sign consent for eventual epidural. Anesthesia is aware. Objective Abnormal lab results 03/24/21 03/24/21 Range/Units 17:42 17:42 WBC 11.63 H (4.4-10.8) 10^3/uL RBC 3.74 L (3.93-5.22) 10^6/uL Hgb 10.9 L (11.2-15.7) g/dL Hct 33.0 L (36.0-46.0) % BUN 6 L (7-18) mg/dL AST 14 L (15-37) U/L Albumin 2.8 L (3.4-5.0) g/dL Temp Pulse Resp BP Pulse Ox 98.4 F 88 18 139/77 98 03/25/21 09:38 03/25/21 09:38 03/25/21 09:38 03/25/21 09:38 03/25/21 09:38 Laboratory Results WBC 11.63 10^3/uL (4.4-10.8) H 03/24/21 17:42 RBC 3.74 10^6/uL (3.93-5.22) L 03/24/21 17:42 Hgb 10.9 g/dL (11.2-15.7) L 03/24/21 17:42 Hct 33.0 % (36.0-46.0) L 03/24/21 17:42 MCV 88.2 fL (80-95) 03/24/21 17:42 MCH 29.1 pg (27.0-33.0) 03/24/21 17:42 MCHC 33.0 % (32.0-36.0) 03/24/21 17:42 RDW 12.3 % (11.7-14.6) 03/24/21 17:42 Plt Count 274 10^3/uL (130-400) 03/24/21 17:42 MPV 10.2 fL (8.0-11.0) 03/24/21 17:42 Sodium 137 mmol/L (136-145) 03/24/21 17:42 Potassium 3.8 mmol/L (3.5-5.1) 03/24/21 17:42 Chloride 104 mmol/L (98-107) 03/24/21 17:42 Carbon Dioxide 22.0 mmol/L (21.0-32.0) 03/24/21 17:42 Anion Gap 11.0 mmol/L (3-11) 03/24/21 17:42 BUN 6 mg/dL (7-18) L 03/24/21 17:42 Creatinine 0.6 mg/dL (0.55-1.02) 03/24/21 17:42 Estimated GFR/1.73 m2 >= 60.00 (mL/min/1.73m2) 03/24/21 17:42 Glucose 91 mg/dL (74-106) 03/24/21 17:42 Calcium 9.2 mg/dL (8.5-10.1) 03/24/21 17:42 Total Bilirubin 0.2 mg/dL (0.2-1.0) 03/24/21 17:42 AST 14 U/L (15-37) L 03/24/21 17:42 ALT 18 U/L (14-59) 03/24/21 17:42 Alkaline Phosphatase 107 U/L (46-116) 03/24/21 17:42 Total Protein 6.8 g/dL (6.4-8.2) 03/24/21 17:42 Albumin 2.8 g/dL (3.4-5.0) L 03/24/21 17:42 Ur Random Creatinine 29.33 mg/dL 03/24/21 18:45 U Random Total Protein < 6.0 mg/dL 03/24/21 18:45 U [place] Prot/Creat Ratio 03/24/21 18:45 COVID-19 Source Nasal/Nares 03/24/21 17:30 SARS-CoV-2 (PCR) Negative (Negative) 03/24/21 17:30 Patient ABO/Rh A Positive 03/24/21 17:42 Antibody Screen NEGATIVE 03/24/21 17:42 Vital Signs Reviewed: Yes Subjective Interval history since last seen: starting to become more uncomfortable and is using nitrous oxide for pain management. She is hoping to do anesthesia pre procedure visit and consent and then wait until discomfort is too much to avoid epidural. Anesthesia is notified and aware of the patient's preference. KH Results Hemoglobin/Hematocrit: Hgb 10.9 g/dL (11.2-15.7) L 03/24/21 17:42 Hct 33.0 % (36.0-46.0) L 03/24/21 17:42 Abnormal Lab Findings: Abnormal Labs 03/24/21 03/24/21 17:42 17:42 WBC 11.63 H RBC 3.74 L Hgb 10.9 L Hct 33.0 L BUN 6 L AST 14 L Albumin 2.8 L
--- NOTE | 2021-03-25 11:34 | ANES.PREOP_ITS ---
General Info Date of Service Date Performed: 03/25/21 Height: 5 ft 4 in Weight: 107.955 kg Body Mass Index (BMI): 40.8 Meds Allergies and Home Medications Allergies Allergy/AdvReac Type Severity Reaction Status Date / Time No Known Allergies Allergy Verified 03/24/21 17:45 Home Medication Medication Instructions Recorded lactobacillus combination no.8 3 3,000 mmu cells PO DAILY 07/27/20 billion cell capsule prenat.vits,hui,uob-[id number] 1 tab PO DAILY 07/27/20 cholecalciferol (vitamin D3) 125 See Rx Instructions PO DAILY 08/12/20 mcg (5,000 unit) tablet magnesium oxide 400 mg PO DAILY 08/31/20 aspirin 81 mg tablet,delayed 81 mg PO DAILY #60 tab 11/25/20 release omeprazole 20 mg capsule,delayed 20 mg PO DAILY #30 cap 11/25/20 release Current Visit Medications: Current Medications Generic Name Dose Route Start Last Admin Trade Name Freq PRN Reason Stop Dose Admin Acetaminophen 1,000 mg 03/25/21 00:34 Acetaminophen 500 Mg Tab PO Q6H PRN PRN Ringer's Solution 1,000 mls @ 200 mls/hr 03/24/21 17:00 IV INFUSION ERIC Sodium Chloride 500 mls @ 0 mls/hr 03/24/21 16:56 Saline 500ml Bag IV PRN PRN As Directed Ringer's Solution 1,000 mls @ 125 mls/hr 03/25/21 06:30 03/25/21 09:28 IV 125 mls/hr INFUSION ERIC Administration Oxytocin/Sodium Chloride 30 unit in 500 mls @ 2 mls/hr 03/25/21 06:30 03/25/21 11:00 Pitocin/Normal Saline IV 8 milliunits/min INFUSION ERIC 8 mls/hr Titration Protocol 2 MILLIUNITS/MIN IV Miscellaneous Supplies 1 each 03/24/21 17:00 Iv Access IV DIRECTED ERIC Sodium Chloride 0 ml 03/24/21 16:56 Normal Saline Flush 10 Ml Syr IVP PRN PRN Terbutaline Sulfate 0.25 mg 03/24/21 16:56 Terbutaline 1 Mg/Ml Vial SC PRN PRN PFSH Active Problems Active Problems: Problem Status Onset Code Encounter for induction of labor Z34.90 Stage 1 hypertension I10 Maternal varicella, non-immune O09.899, Z28.3 BMI 37.0-37.9, adult Z68.37 Z34.90 Encounter for screening for other viral diseases Z11.59 Medical History Medical History Labial irritation Vaginal discharge during in second trimester Tobacco Smoking/Tobacco Use Status: Never Alcohol Alcohol Intake: former Substance Use Substance use: Never Substance use type: does not use Details: Alcohol use rarely prior to Prental History History 1 Para 0 Hx # Term Pregnancies 0 Multiple births 0 Hx # Pregnancies 0 Ectopic pregnancies 0 AB induced 0 Hx Number of Living Children 0 AB spontaneous 0 Vital Signs and Lab Results Vital Signs Most Recent Vital Signs in EMR: Most Recent Vital Signs Temp Pulse Resp BP Pulse Ox 36.9 C 72 18 135/83 98 03/25/21 09:38 03/25/21 11:28 03/25/21 09:38 03/25/21 11:28 03/25/21 09:38 Lab Results Result Diagrams: 03/24/21 17:42 03/24/21 17:42 Blood Type / Crossmatch: Patient ABO/Rh A Positive 03/24/21 17:42 03/24/21 Antibody Screen NEGATIVE 03/24/21 17:42 03/24/21 Complete Blood Count: White Blood Count 11.63 10^3/uL (4.4-10.8) H 03/24/21 17:42 03/24/21 Red Blood Count 3.74 10^6/uL (3.93-5.22) L 03/24/21 17:42 03/24/21 Hemoglobin 10.9 g/dL (11.2-15.7) L 03/24/21 17:42 03/24/21 Hematocrit 33.0 % (36.0-46.0) L 03/24/21 17:42 03/24/21 Platelet Count 274 10^3/uL (130-400) 03/24/21 17:42 03/24/21 Complete Metabolic Panel: 2 Sodium Level 137 mmol/L (136-145) 03/24/21 17:42 03/24/21 Potassium Level 3.8 mmol/L (3.5-5.1) 03/24/21 17:42 03/24/21 Chloride Level 104 mmol/L (98-107) 03/24/21 17:42 03/24/21 Carbon Dioxide Level 22.0 mmol/L (21.0-32.0) 03/24/21 17:42 03/24/21 Blood Urea Nitrogen 6 mg/dL (7-18) L 03/24/21 17:42 03/24/21 Creatinine 0.6 mg/dL (0.55-1.02) 03/24/21 17:42 03/24/21 Estimated GFR/1.73 m2 >= 60.00 (mL/min/1.73m2) 03/24/21 17:42 03/24/21 Calcium Level 9.2 mg/dL (8.5-10.1) 03/24/21 17:42 03/24/21 Albumin 2.8 g/dL (3.4-5.0) L 03/24/21 17:42 03/24/21 Glucose Level 91 mg/dL (74-106) 03/24/21 17:42 03/24/21 Liver Function Panel: Alanine Aminotransferase (ALT/SGPT) 18 U/L (14-59) 03/24/21 17:42 03/24/21 Aspartate Amino Transf (AST/SGOT) 14 U/L (15-37) L 03/24/21 17:42 03/24/21 Coagulation Panel: No Data to Display Cardiac Panel: No Data to Display Arterial Blood Gas: No Data to Display Venous Blood Gas: No Data to Display Pancreas Panel: No Data to Display Thyroid Panel: No Data to Display Infectious Disease: Coronavirus (COVID-19)(PCR) Negative (Negative) 03/24/21 17:30 03/24/21 Coronavirus 2019 Source Nasal/Nares 03/24/21 17:30 03/24/21 Blood Cultures: No Data to Display Toxicology Panel: Urine Amphetamines Screen Negative (Negative) 03/04/21 08:50 03/04/21 Urine Benzodiazepines Screen Negative (Negative) 03/04/21 08:50 03/04/21 Urine Barbiturates Screen Negative (Negative) 03/04/21 08:50 03/04/21 Urine Cocaine Screen Negative (Negative) 03/04/21 08:50 03/04/21 Urine Methadone Screen Negative (Negative) 03/04/21 08:50 03/04/21 Urine Opiates Screen Negative (Negative) 03/04/21 08:50 03/04/21 Ur Tricyclic Antidepressants Screen Negative (Negative) 03/04/21 08:50 03/04/21 Ur Tetrahydrocannabinol (THC) Scrn Negative (Negative) 03/04/21 08:50 03/04/21 Panel: No Data to Display Anesthesia Assessment and Plan Anesthesia History Personal History: No History of Anesthesia Complications Family History: No Family History of Anesthesia Complications Exercise Tolerance Exercise Tolerance: Metabolic Equivalents>4 Pertinent Negatives Pertinent Negatives: No Major Cardiovascular Symptoms or Complaints and No Major Pulmonary Symptoms or Complaints Cardiac & Pulmonary Exam Cardiac Exam: Normal S1/S2 Heart Sounds Pulmonary Exam: Clear Bilateral Breath Sounds Airway Exam Known Difficult Airway: No Mallampati Class: 2 Mouth Opening: Normal (> 3cm) Thyromental Distance: Greater than 3 cm Neck Range of Motion: Full ROM Neck Circumference: Normal Teeth Condition: Normal Dentition ASA Classification ASA Score: ASA 2 Emergency Case?: No NPO Status NPO Status: Full Stomach Status Status: Confirmed Anesthesia Plan Resuscitation Status: Full Code Anesthesia Technique: Epidural Anesthesia Airway Planned: Natural Airway Monitors Used: Standard Monitors
--- NOTE | 2021-03-25 12:21 | W.PM.OBNL1 ---
Date of service: 03/25/21 Time of Service: 12:21 Informed Consent Informed Consent: Induction of Labor Pelvic Exam Dilation: 2 Effacement (%): 80 station: -1 Cervix Position: posterior Consistency: soft Vaginal Exam Presentation: Cephalic Contractions Monitor Mode: Palpation Contraction Frequency(min): 2-4 Contraction Duration(sec): 60 Intensity: Mild/Moderate Fetus A Monitor: External (US) Heart Rate Baseline: 125 Presentation: Cephalic Variability: Moderate (6-25 BPM) Categories: Category I Accelerations: 15 X 15 Decelerations: None Assessment and Plan Assessment and plan (1) Encounter for induction of labor: Status: Acute Assessment and plan: continue present management and will get epidural for pain management. will repeat VE once patient is comfortable for at least 30 minutes or as indicated. will encourage rest after she has become more comfortable. Physician is aware of plan of care. KH Objective Abnormal lab results 03/24/21 03/24/21 Range/Units 17:42 17:42 WBC 11.63 H (4.4-10.8) 10^3/uL RBC 3.74 L (3.93-5.22) 10^6/uL Hgb 10.9 L (11.2-15.7) g/dL Hct 33.0 L (36.0-46.0) % BUN 6 L (7-18) mg/dL AST 14 L (15-37) U/L Albumin 2.8 L (3.4-5.0) g/dL Temp Pulse Resp BP Pulse Ox 98.4 F 72 18 135/83 96 03/25/21 09:38 03/25/21 11:28 03/25/21 11:28 03/25/21 11:28 03/25/21 11:28 Laboratory Results WBC 11.63 10^3/uL (4.4-10.8) H 03/24/21 17:42 RBC 3.74 10^6/uL (3.93-5.22) L 03/24/21 17:42 Hgb 10.9 g/dL (11.2-15.7) L 03/24/21 17:42 Hct 33.0 % (36.0-46.0) L 03/24/21 17:42 MCV 88.2 fL (80-95) 03/24/21 17:42 MCH 29.1 pg (27.0-33.0) 03/24/21 17:42 MCHC 33.0 % (32.0-36.0) 03/24/21 17:42 RDW 12.3 % (11.7-14.6) 03/24/21 17:42 Plt Count 274 10^3/uL (130-400) 03/24/21 17:42 MPV 10.2 fL (8.0-11.0) 03/24/21 17:42 Sodium 137 mmol/L (136-145) 03/24/21 17:42 Potassium 3.8 mmol/L (3.5-5.1) 03/24/21 17:42 Chloride 104 mmol/L (98-107) 03/24/21 17:42 Carbon Dioxide 22.0 mmol/L (21.0-32.0) 03/24/21 17:42 Anion Gap 11.0 mmol/L (3-11) 03/24/21 17:42 BUN 6 mg/dL (7-18) L 03/24/21 17:42 Creatinine 0.6 mg/dL (0.55-1.02) 03/24/21 17:42 Estimated GFR/1.73 m2 >= 60.00 (mL/min/1.73m2) 03/24/21 17:42 Glucose 91 mg/dL (74-106) 03/24/21 17:42 Calcium 9.2 mg/dL (8.5-10.1) 03/24/21 17:42 Total Bilirubin 0.2 mg/dL (0.2-1.0) 03/24/21 17:42 AST 14 U/L (15-37) L 03/24/21 17:42 ALT 18 U/L (14-59) 03/24/21 17:42 Alkaline Phosphatase 107 U/L (46-116) 03/24/21 17:42 Total Protein 6.8 g/dL (6.4-8.2) 03/24/21 17:42 Albumin 2.8 g/dL (3.4-5.0) L 03/24/21 17:42 Ur Random Creatinine 29.33 mg/dL 03/24/21 18:45 U Random Total Protein < 6.0 mg/dL 10/13/21 18:45 U [place] Prot/Creat Ratio 03/24/21 18:45 COVID-19 Source Nasal/Nares 03/24/21 17:30 SARS-CoV-2 (PCR) Negative (Negative) 03/24/21 17:30 Patient ABO/Rh A Positive 03/24/21 17:42 Antibody Screen NEGATIVE 03/24/21 17:42 Vital Signs Reviewed: Yes Subjective Interval history since last seen: requested VE to determine her plan for epidural. Patient is concerned about her ability to tolerate pain for many hours. has difficulty tolerating VE due to cervix being posterior. VE /VTX -1/ soft/ posterior. Anesthesia will attend. Nursing is aware. KH Interventions Pain Management Interventions: Epidural . Results Hemoglobin/Hematocrit: Hgb 10.9 g/dL (11.2-15.7) L 03/24/21 17:42 Hct 33.0 % (36.0-46.0) L 03/24/21 17:42 Abnormal Lab Findings: Abnormal Labs 03/24/21 03/24/21 17:42 17:42 WBC 11.63 H RBC 3.74 L Hgb 10.9 L Hct 33.0 L BUN 6 L AST 14 L Albumin 2.8 L
[2021-03-25] MEDS: FentaNYL/ROPIvacaine 2 mcg/ml and 0.1% 200 ML CADD Cassette EP (13:35)
--- NOTE | 2021-03-25 13:45 | ANES.NEUR_ITS ---
Epidural/Spinal Catheter Date Performed: 03/25/21 Procedure Start: 13:10 Procedure Stop: 13:40 Requesting Provider: Antonella Morgan Procedure Location: Obstetrics Reason Performed: Labor Epidural Standard Monitors Applied: ECG, Blood Pressure, SpO2 and See EMR for corresponding vital signs Patient Position: Sitting Sedation Given (Indicate Dose Given): No Sedation given Patient Mental Status: Awake Sterility: Hand Hygiene, Surgical Cap, Surgical Mask, Sterile Gloves, Sterile Drape/Sheet, Eye Protection and Chlorhexidine Procedure Location: L3-L4 Interspace Epidural Needle: Tuohy 18 Gauge Needle Length: 3.5 Inch Needle Approach: Midline Epidural Procedure: Skin Prepped, Sterile Drape Placed, 1% Lidocaine to skin and subcutaneous tissue with 25G needle, Tuohy Needle placed, JAMEE to Air Used, Epidural Catheter Placed, Negative Heme and Negative CSF Flow Catheter Placed?: Catheter Placed Test Dose (Indicate Dose Given): 3ml 1.5% Li docaine with 1:200K Epinephrine Given Loss of Resistance Depth (cm): 9 Catheter depth at skin (cm): 16 Dressing: [place] Dressing Placed and Tegaderm Applied Epidural Provider Bolus (Indicate Dose Given): Total bolus dose given in 3-5 ml divided doses and Total Ropivacaine 0.1% with Fentanyl 2mcg/ml Given from pump (ml) Dose:: 5 mL Additives (Indicate Dose Given ): None Infusion Medication: Medication Infusion Began Medication Infusion: Ropivacaine 0.1% with Fentanyl 2mcg/ml Maintenance Infusion Rate (ml/hour): 10 PCEA Bolus Dose (ml): 5 Block Level: N/A Paresthesia: Right Paresthesia Duration: Transient Ultrasound: Used to dangelo site Number of Attempts (See previous attempts in note section): 2 Procedure Tolerated: No Complications Procedure Outcome: Successful Procedure Comment:: Procedure attempted at 1230 and procedure was paused temporarily to regroup. Makayla Morgan at bedside providing patient support. Procedure restarted at 1310 following mapping of back with ultrasound. Catheter placed at 1323 and infusion initiated at 1335. Performed By: Mitzi Jonas
--- NOTE | 2021-03-25 14:19 | PGE_ITS ---
Date of service: 03/25/21 Time of Service: 14:19 Informed Consent Informed Consent: Induction of Labor Pelvic Exam Dilation: 3 Effacement (%): 80 station: -1 Cervix Position: mid Consistency: soft Vaginal Exam Presentation: Cephalic Contractions Monitor Mode: External Contraction Frequency(min): 2-3 Contraction Duration(sec): 40-60 Intensity: Moderate Fetus A Monitor: External (US) Heart Rate Baseline: 145 Variability: Moderate (6-25 BPM) Categories: Category II (has had some late decelerations sine epidural was placed, will repostion and monitor for improvement. Dr. Robledo notified. will D/C pitocin if pattern continues.) Accelerations: 10 X 10 Decelerations: Late Recurrence: Intermittent Amniotic Membrane Status: Other (bulging membranes) Assessment and Plan Assessment and plan (1) Encounter for induction of labor: Status: Acute Assessment and plan: will monitor FHR pattern and reposition patient to improve CAT II tracing. Reassess as indicated. Dr. Robledo aware. KH Objective Abnormal lab results 03/24/21 03/24/21 Range/Units 17:42 17:42 WBC 11.63 H (4.4-10.8) 10^3/uL RBC 3.74 L (3.93-5.22) 10^6/uL Hgb 10.9 L (11.2-15.7) g/dL Hct 33.0 L (36.0-46.0) % BUN 6 L (7-18) mg/dL AST 14 L (15-37) U/L Albumin 2.8 L (3.4-5.0) g/dL Temp Pulse Resp BP Pulse Ox 98.8 F 107 H 18 142/99 H 100 03/25/21 13:44 03/25/21 14:17 03/25/21 11:28 03/25/21 13:50 03/25/21 14:17 Laboratory Results WBC 11.63 10^3/uL (4.4-10.8) H 03/24/21 17:42 RBC 3.74 10^6/uL (3.93-5.22) L 03/24/21 17:42 Hgb 10.9 g/dL (11.2-15.7) L 03/24/21 17:42 Hct 33.0 % (36.0-46.0) L 03/24/21 17:42 MCV 88.2 fL (80-95) 03/24/21 17:42 MCH 29.1 pg (27.0-33.0) 03/24/21 17:42 MCHC 33.0 % (32.0-36.0) 03/24/21 17:42 RDW 12.3 % (11.7-14.6) 03/24/21 17:42 Plt Count 274 10^3/uL (130-400) 03/24/21 17:42 MPV 10.2 fL (8.0-11.0) 03/24/21 17:42 Sodium 137 mmol/L (136-145) 03/24/21 17:42 Potassium 3.8 mmol/L (3.5-5.1) 03/24/21 17:42 Chloride 104 mmol/L (98-107) 03/24/21 17:42 Carbon Dioxide 22.0 mmol/L (21.0-32.0) 03/24/21 17:42 Anion Gap 11.0 mmol/L (3-11) 03/24/21 17:42 BUN 6 mg/dL (7-18) L 03/24/21 17:42 Creatinine 0.6 mg/dL (0.55-1.02) 03/24/21 17:42 Estimated GFR/1.73 m2 >= 60.00 (mL/min/1.73m2) 03/24/21 17:42 Glucose 91 mg/dL (74-106) 03/24/21 17:42 Calcium 9.2 mg/dL (8.5-10.1) 03/24/21 17:42 Total Bilirubin 0.2 mg/dL (0.2-1.0) 03/24/21 17:42 AST 14 U/L (15-37) L 03/24/21 17:42 ALT 18 U/L (14-59) 03/24/21 17:42 Alkaline Phosphatase 107 U/L (46-116) 03/24/21 17:42 Total Protein 6.8 g/dL (6.4-8.2) 03/24/21 17:42 Albumin 2.8 g/dL (3.4-5.0) L 03/24/21 17:42 Ur Random Creatinine 29.33 mg/dL 03/24/21 18:45 U Random Total Protein < 6.0 mg/dL 03/24/21 18:45 U [place] Prot/Creat Ratio 03/24/21 18:45 COVID-19 Source Nasal/Nares 03/24/21 17:30 SARS-CoV-2 (PCR) Negative (Negative) 03/24/21 17:30 Patient ABO/Rh A Positive 03/24/21 17:42 Antibody Screen NEGATIVE 03/24/21 17:42 Vital Signs Reviewed: Yes Subjective Interval history since last seen: much more comfortable since epidural. moving well in bed. KH Results Hemoglobin/Hematocrit: Hgb 10.9 g/dL (11.2-15.7) L 03/24/21 17:42 Hct 33.0 % (36.0-46.0) L 03/24/21 17:42 Abnormal Lab Findings: Abnormal Labs 03/24/21 03/24/21 17:42 17:42 WBC 11.63 H RBC 3.74 L Hgb 10.9 L Hct 33.0 L BUN 6 L AST 14 L Albumin 2.8 L
--- NOTE | 2021-03-25 15:35 | W.PM.OBNL1 ---
Date of service: 03/25/21 Time of Service: 15:36 Informed Consent Informed Consent: Induction of Labor Pelvic Exam Dilation: 5 Effacement (%): 90 station: -1 Cervix Position: anterior Consistency: soft Vaginal Exam Presentation: Cephalic Comments: AROM for large amount of clear fluid with pink tinge at approximately 1523. FSE and IUPC placed. Pitocin is currently off due to FHR decel that occured at 1518 and has now recovered. will restart based on well being and IUPC MVU measurement. KH Contractions Monitor Mode: Internal Contraction Frequency(min): 3-5 Contraction Duration(sec): 60-80 IUPC resting tone (mmHg): 20 IUPC peak pressure (mmHg): 60 IUPC [place] units: 120 Fetus A Monitor: Internal (FSE) Heart Rate Baseline: 130 Presentation: Cephalic Variability: Moderate (6-25 BPM) Categories: Category I Accelerations: 10 X 10 Decelerations: None Assessment and Plan Assessment and plan (1) Encounter for induction of labor: Status: Acute Assessment and plan: AROM and FSE/ IUPC placed. Adequate progress to 5.5cm/90/-1. Pitocin off due to a 2 minute decel that occured at 1518 and has resolved. currently CAT I tracing. Will restart pitocin after a 30 minute period of CAT I tracing. Expect NVD. KH Objective Abnormal lab results 03/24/21 03/24/21 Range/Units 17:42 17:42 WBC 11.63 H (4.4-10.8) 10^3/uL RBC 3.74 L (3.93-5.22) 10^6/uL Hgb 10.9 L (11.2-15.7) g/dL Hct 33.0 L (36.0-46.0) % BUN 6 L (7-18) mg/dL AST 14 L (15-37) U/L Albumin 2.8 L (3.4-5.0) g/dL Temp Pulse Resp BP Pulse Ox 98.8 F 85 18 124/78 100 03/25/21 13:44 03/25/21 14:52 03/25/21 11:28 03/25/21 14:52 03/25/21 14:17 Laboratory Results WBC 11.63 10^3/uL (4.4-10.8) H 10/13/21 17:42 RBC 3.74 10^6/uL (3.93-5.22) L 03/24/21 17:42 Hgb 10.9 g/dL (11.2-15.7) L 03/24/21 17:42 Hct 33.0 % (36.0-46.0) L 03/24/21 17:42 MCV 88.2 fL (80-95) 03/24/21 17:42 MCH 29.1 pg (27.0-33.0) 03/24/21 17:42 MCHC 33.0 % (32.0-36.0) 03/24/21 17:42 RDW 12.3 % (11.7-14.6) 03/24/21 17:42 Plt Count 274 10^3/uL (130-400) 03/24/21 17:42 MPV 10.2 fL (8.0-11.0) 03/24/21 17:42 Sodium 137 mmol/L (136-145) 03/24/21 17:42 Potassium 3.8 mmol/L (3.5-5.1) 03/24/21 17:42 Chloride 104 mmol/L (98-107) 03/24/21 17:42 Carbon Dioxide 22.0 mmol/L (21.0-32.0) 03/24/21 17:42 Anion Gap 11.0 mmol/L (3-11) 03/24/21 17:42 BUN 6 mg/dL (7-18) L 03/24/21 17:42 Creatinine 0.6 mg/dL (0.55-1.02) 03/24/21 17:42 Estimated GFR/1.73 m2 >= 60.00 (mL/min/1.73m2) 03/24/21 17:42 Glucose 91 mg/dL (74-106) 03/24/21 17:42 Calcium 9.2 mg/dL (8.5-10.1) 03/24/21 17:42 Total Bilirubin 0.2 mg/dL (0.2-1.0) 03/24/21 17:42 AST 14 U/L (15-37) L 03/24/21 17:42 ALT 18 U/L (14-59) 03/24/21 17:42 Alkaline Phosphatase 107 U/L (46-116) 03/24/21 17:42 Total Protein 6.8 g/dL (6.4-8.2) 03/24/21 17:42 Albumin 2.8 g/dL (3.4-5.0) L 03/24/21 17:42 Ur Random Creatinine 29.33 mg/dL 03/24/21 18:45 U Random Total Protein < 6.0 mg/dL 03/24/21 18:45 U [place] Prot/Creat Ratio 03/24/21 18:45 COVID-19 Source Nasal/Nares 03/24/21 17:30 SARS-CoV-2 (PCR) Negative (Negative) 03/24/21 17:30 Patient ABO/Rh A Positive 03/24/21 17:42 Antibody Screen NEGATIVE 03/24/21 17:42 Vital Signs Reviewed: Yes Subjective Interval history since last seen: very comfortable. internal communications writer at bedside due to FHR deceleration to 80's which recovered spontaneously. KH Results Hemoglobin/Hematocrit: Hgb 10.9 g/dL (11.2-15.7) L 03/24/21 17:42 Hct 33.0 % (36.0-46.0) L 03/24/21 17:42 Abnormal Lab Findings: Abnormal Labs 03/24/21 03/24/21 17:42 17:42 WBC 11.63 H RBC 3.74 L Hgb 10.9 L Hct 33.0 L BUN 6 L AST 14 L Albumin 2.8 L
[2021-03-25] MEDS: Acetaminophen 500 MG TAB 1000 MG PO (16:52)
--- NOTE | 2021-03-25 19:12 | W.PM.OBNL1 ---
Date of service: 03/25/21 Time of Service: 19:12 Informed Consent Informed Consent: Induction of Labor Pelvic Exam Dilation: 7 Effacement (%): 90 station: -1 Cervix Position: anterior Consistency: soft Comments: last VE of 7cm was done when IUPC came off and EFM was restarted. KH Contractions Monitor Mode: Internal Contraction Frequency(min): 2-3 Contraction Duration(sec): 60 IUPC resting tone (mmHg): 25 IUPC peak pressure (mmHg): 90 IUPC [place] units: 195 Fetus A Monitor: External (US) Heart Rate Baseline: 122 Presentation: Cephalic Variability: Moderate (6-25 BPM) Categories: Category I Accelerations: 10 X 10 Decelerations: None Assessment and Plan Assessment and plan (1) Encounter for induction of labor: Status: Acute Assessment and plan: will anticipate NVD VS are stable FHR is CAT I.KH Objective Temp Pulse Resp BP Pulse Ox 98.1 F 62 18 132/76 100 03/25/21 18:00 03/25/21 18:59 03/25/21 18:00 03/25/21 18:59 03/25/21 14:17 Laboratory Results WBC 11.63 10^3/uL (4.4-10.8) H 03/24/21 17:42 RBC 3.74 10^6/uL (3.93-5.22) L 03/24/21 17:42 Hgb 10.9 g/dL (11.2-15.7) L 03/24/21 17:42 Hct 33.0 % (36.0-46.0) L 03/24/21 17:42 MCV 88.2 fL (80-95) 03/24/21 17:42 MCH 29.1 pg (27.0-33.0) 03/24/21 17:42 MCHC 33.0 % (32.0-36.0) 03/24/21 17:42 RDW 12.3 % (11.7-14.6) 03/24/21 17:42 Plt Count 274 10^3/uL (130-400) 03/24/21 17:42 MPV 10.2 fL (8.0-11.0) 03/24/21 17:42 Sodium 137 mmol/L (136-145) 03/24/21 17:42 Potassium 3.8 mmol/L (3.5-5.1) 03/24/21 17:42 Chloride 104 mmol/L (98-107) 03/24/21 17:42 Carbon Dioxide 22.0 mmol/L (21.0-32.0) 03/24/21 17:42 Anion Gap 11.0 mmol/L (3-11) 03/24/21 17:42 BUN 6 mg/dL (7-18) L 03/24/21 17:42 Creatinine 0.6 mg/dL (0.55-1.02) 03/24/21 17:42 Estimated GFR/1.73 m2 >= 60.00 (mL/min/1.73m2) 03/24/21 17:42 Glucose 91 mg/dL (74-106) 03/24/21 17:42 Calcium 9.2 mg/dL (8.5-10.1) 03/24/21 17:42 Total Bilirubin 0.2 mg/dL (0.2-1.0) 03/24/21 17:42 AST 14 U/L (15-37) L 03/24/21 17:42 ALT 18 U/L (14-59) 03/24/21 17:42 Alkaline Phosphatase 107 U/L (46-116) 03/24/21 17:42 Total Protein 6.8 g/dL (6.4-8.2) 03/24/21 17:42 Albumin 2.8 g/dL (3.4-5.0) L 03/24/21 17:42 Ur Random Creatinine 29.33 mg/dL 03/24/21 18:45 U Random Total Protein < 6.0 mg/dL 03/24/21 18:45 U [place] Prot/Creat Ratio 03/24/21 18:45 COVID-19 Source Nasal/Nares 03/24/21 17:30 SARS-CoV-2 (PCR) Negative (Negative) 03/24/21 17:30 Patient ABO/Rh A Positive 03/24/21 17:42 Antibody Screen NEGATIVE 03/24/21 17:42 Vital Signs Reviewed: Yes Subjective Interval history since last seen: has begun to feel some rectal pressure but no involuntary urge to push. Epidural is working very well for patient and she is remaining composed and able to tolerate process well. She is beginning to anticipate her daughter's arrival. is present and resting. KH Results Hemoglobin/Hematocrit: Hgb 10.9 g/dL (11.2-15.7) L 03/24/21 17:42 Hct 33.0 % (36.0-46.0) L 03/24/21 17:42 Abnormal Lab Findings: Abnormal Labs 03/24/21 03/24/21 17:42 17:42 WBC 11.63 H RBC 3.74 L Hgb 10.9 L Hct 33.0 L BUN 6 L AST 14 L Albumin 2.8 L
--- NOTE | 2021-03-25 21:16 | OBVDS_ITS ---
Date of service: 03/25/21 Time of Service: 21:16 OB Labor/ Delivery Information Baby A Delivery Delivery Method: Spontaneaous Presentation: Cephalic Vertex Position: Left Occipital Transverse Cord Description-Baby A: 3 Vessels and Clamped/Cut Amniotic Fluid: Clear Estimated Blood Loss: 100 Delivery Outcome: Liveborn Infant Transferred: Remains with Mother Note: live female delivers LOT over intact perineum at 2049. Baby is brought to Mother's abdomen for skin to skin. Delayed cord clamping for 5 minutes then cord was clamped X 2 and cut by provider as Mother and Father declined. 3 vessel cord noted. Cord blood obtained. Placenta delivers via holloway mechanism, intact shortly after. Fundus firms to U with massage and IV fluid with pitocin infusing per second stage huddle plan. Vagina and perineum inspected and is intact with small abrasion noted inside introitus that is hemostatic and left unrepaired. Baby's scores are 8 at 1 minute and 9 at 5 minutes. Sponge and instrument count are correct, no needles were on table. Baby girl Melanie Castaneda will remain with her Mother for the patel hour or until breast feeding is well established. Mother and baby are in satisfactory condition. Weight 8lb 2oz. Providers Nurse Geospatial Image Analyst: Antonella Morgan Manager Estate: Mitzi Jonas Nurse: Lupis Valenzuela Nurse: Danika León Labor/Delivery Information Number of Babies in Womb: 1 Steroids Given: None Reason Steroids Not Administered: N/A Group Beta Strep: Negative Antibiotics Administered: No Rubella Status: Immune Blood Type: A+ Varicella Immunity: Nonimmune Born En Route: No Maternal Complications: None Shoulder Dystocia: No Stages of Labor Onset of Labor Date: 03/25/21 Onset of Labor Time: 12:00 Complete Dilatation Date: 03/25/21 Complete Dilatation Time: 19:27 Labor - Stage 1 Duration: 0 minutes ROM Baby A: 03/25/21 ROM Baby A: 15:21 ROM Total Time- Baby A: [id number] Infant Delivery Date-Baby A: 03/25/21 Infant Delivery Time-Baby A: 20:50 Labor Stage 2 Duration: 1 hours and 23 minutes Placenta Delivery Date-Baby A: 03/25/21 Placenta Delivery Time-Baby A: 20:58 Labor-Stage 3 Duration: 8 minutes Total Length of Labor-Baby A: 8 hours and 50 minutes Placenta Cultured: No Placenta Status: Delivered Baby A Infant Gender: Female Gestational Status: Term (39-41.6 wks) Gestational Age in Weeks/Days: 39 Weeks and 2 Days
[2021-03-25] MEDS: Docusate Sodium 100 MG CAP PO (23:50)
[2021-03-26 01:05] VITALS: BP 136/85; PULSE 111; RESP 18; O2SAT 99
[2021-03-26] MEDS: Acetaminophen 500 MG TAB 1000 MG PO (04:41)
[2021-03-26] MEDS: Ibuprofen 600 MG TAB PO ×3 (04:42→17:57)
[2021-03-26 04:45] VITALS: BP 128/86; PULSE 74; RESP 16; TEMP 36.6; O2SAT 98
[2021-03-26 07:45] VITALS: BP 120/78; PULSE 84; RESP 16; TEMP 36.7; O2SAT 99
--- NOTE | 2021-03-26 08:09 | W.PM.OBPNV1 ---
Date of service: 03/26/21 Time of Service: 08:10 Assessment and Plan Assessment and plan (1) care following vaginal delivery: Status: Acute Assessment and plan: doing well, out of bed without assistance. JENNIE (2) Lactating mother: Status: Acute Assessment and plan: breast feeding well but will be working to ensure proper latching techniques today. JENNIE (3) Maternal varicella, non-immune: Status: Acute Assessment and plan: will get first dose of PP varicella vaccine before discharge to hospital. Patient will need second dose at 6 week PP visit. She plans flu vaccine at 2 week PP visit. JENNIE Subjective Subjective Patient comments: No complaints, Pain well controlled and Tolerating diet [place] baby status: Doing well, Nursing well (will be working with nursing and LC for proper latch as today goes on. JENNIE) and [employer]ing Observed [place] feeding status: Exclusively breast feeding Exam Physical Exam Vital signs: Temp Pulse Resp BP Pulse Ox 97.9 F 74 16 128/86 98 03/26/21 04:45 03/26/21 04:45 03/26/21 04:45 03/26/21 04:45 03/26/21 04:45 Vital Signs Reviewed: Yes Constitutional Constitutional: no acute distress HEENT Exam HEENT Exam: Normal Neck Exam Neck Exam: Not Done Respiratory Exam Respiratory Exam: Normal Cardiovascular Exam Cardiovascular Exam: Normal Fundal Exam Fundus: Below Umbilicus and Firm Comment: small lochia Rectal Exam Rectal Exam: Not Done Exam Patient deferred: perineal exam Perineum: Normal Extremities Exam Extremity Exam: Normal Back/Spine/Pelvis Exam Back Exam: Not Done Skin Exam Skin Exam: Normal Neurological Exam Neurological Exam: Normal (grossly intact. JENNIE) Psychiatric Exam Psychiatric Exam: Normal Results Hemoglobin/Hematocrit: Hgb 10.9 g/dL (11.2-15.7) L 03/24/21 17:42 Hct 33.0 % (36.0-46.0) L 03/24/21 17:42 Abnormal Lab Findings: Abnormal Labs 03/24/21 03/24/21 17:42 17:42 WBC 11.63 H RBC 3.74 L Hgb 10.9 L Hct 33.0 L BUN 6 L AST 14 L Albumin 2.8 L
--- NOTE | 2021-03-26 10:08 | W.ANESPOSTOP ---
Postoperative Evaluation Date, Time and Location Date Performed: 03/26/21 Time Performed: 10:08 Patient Location: Obstetrics Vital Signs Most Recent Imported Vital Signs: Most Recent Vital Signs Temp Pulse Resp BP Pulse Ox 36.7 C 84 16 124/78 99 03/26/21 07:45 03/26/21 07:45 03/26/21 07:45 03/26/21 07:45 03/26/21 07:45 Pain Score Most Recent Pain Score: Most Recent Pain Score Pain Level 4 03/25/21 16:52 Assessment Mental Status: Awake (Alert & Oriented to Patient Baseline) Airway and Respiratory Function: Patent airway with normal (patient baseline) respiratory exam Cardiovascular Function: Hemodynamically Stable Hydration Status: Adequately Hydrated Nausea & Vomiting: No Nausea or Vomiting Pain: Pain is tolerable per patient Peripheral Nerve Block: Patient did not receive a nerve block
[2021-03-26] MEDS: Hamamelis Leaf/Glycerin 100 EACH BOX PR (10:11)
[2021-03-26] MEDS: Docusate Sodium 100 MG CAP PO (10:12)
[2021-03-26] MEDS: Prenatal Multivitamin w/CA,FE TAB 1 TAB PO (10:12)
[2021-03-26] MEDS: Omeprazole 20 MG CAPCR PO (10:12)
[2021-03-26] MEDS: Acetaminophen 325 MG TAB 650 MG PO ×2 (10:13→17:57)
[2021-03-26] MEDS: Dibucaine 1% 28 GM TUBE (11:37)
[2021-03-26] MEDS: Varicella Virus Vaccine (Live) 0.5 ML SC (15:27)
[2021-03-26 15:41] VITALS: TEMP 36.7
[2021-03-27 01:00] VITALS: BP 130/91; PULSE 87; RESP 18; TEMP 36.8; O2SAT 98
[2021-03-27] MEDS: Ibuprofen 600 MG TAB PO ×2 (04:25→10:22)
[2021-03-27] MEDS: Acetaminophen 325 MG TAB 650 MG PO ×2 (04:26→10:22)
[2021-03-27 08:01] VITALS: BP 123/84; PULSE 85; RESP 16; TEMP 36.6
--- NOTE | 2021-03-27 08:55 | DSE_ITS ---
Date of service: 03/27/21 Time of Service: 08:55 DS: Diagnosis Discharge Diagnosis (1) care following vaginal delivery: Start date: 03/27/21 Start time: 08:56 Status: Acute Asessment and Plan: will discharge to home today and have patient return to office in 2 and 6 weeks for follow up or as needed.JENNIE (2) Lactating mother: Start date: 03/27/21 Start time: 08:56 Status: Acute Asessment and Plan: Continue present management and patient is encouraged to call provider as needed. JENNIE (3) Maternal varicella, non-immune: Start date: 03/27/21 Start time: 08:57 Status: Acute Asessment and Plan: first dose of 2 part series of adult varicella vaccine has been given on 03/27/21, patient will get second dose at 6 week PP visit. JENNIE (4) Influenza vaccine needed: Start date: 03/27/21 Start time: 08:58 Status: Acute Asessment and Plan: Patient will receive her influenza vaccine prior to discharge from the hospital today. Discharge Plan Disposition Patient Disposition: HOME Condition: Good Discharge Details Reason For Visit: Complicated by Chronic HTN Admit Date/Time: 03/24/21 16:57 Admit Provider: Antonella Morgan Attending Provider: Antonella Morgan Primary Care Provider: Zenaida Aviles [place] Meds and New Rx's Prescriptions: Continued Adult Probiotic 3 billion cell capsule 3,000 mmu cells PO DAILY RF: 0 cholecalciferol (vitamin D3) 125 mcg (5,000 unit) tablet See Rx Instructions PO DAILY RF: 0 magnesium oxide 400 mg magnesium tablet 400 mg PO DAILY RF: 0 Discontinued prenat.vits,hui,[id number] Tablet 1 tab PO DAILY RF: 0 aspirin 81 mg tablet,delayed release (DR/EC) 81 mg PO DAILY Qty: 60 RF: 3 omeprazole 20 mg capsule,delayed release(DR/EC) 20 mg PO DAILY Qty: 30 RF: 3 Discharge Instructions Stand Alone Forms: BC Post Vaginal Deliver Activity:: Activity as Tolerated Equipment/Supplies:: No Equipment Needed Diet:: As Tolerated Discharge Orders Discharge Orders: Discharge Order (Routine); Ordered 03/27/21 Ordered By: Antonella Morgan OB:DS Summary Summary Vaginal Delivery Method: Spontaneaous Episiotomy Description: None Laceration Description: None Laceration Extension: N/A Contraception Discussed Contraception Discussed: Yes (planning condoms but considering IUD will discuss further at 2 week PP vis.), Gender-Baby A: Female weight: 8 lb 2.161 oz Status at Discharge Functional status at discharge: independent ambulation Overall status at discharge: patient is back to baseline Mental Status: mental status grossly normal Speech and Movement: speech and movement normal Mood: congruent mood Affect: normal affect Exam Physical Exam Vital signs: Temp Pulse Resp BP Pulse Ox 97.8 F 85 16 123/84 98 03/27/21 08:01 03/27/21 08:01 03/27/21 08:01 03/27/21 08:01 03/27/21 01:00 Vital Signs Reviewed: Yes Constitutional Constitutional: no acute distress and obese HEENT Exam HEENT Exam: Normal Neck Exam Neck Exam: Not Done Breast Exam normal: Breast Exam: Normal Nipple Exam: Normal Respiratory Exam Respiratory Exam: Normal Cardiovascular Exam Cardiovascular Exam: Normal Abdominal Exam Comments: normal PP exam Fundal Exam Fundus: Below Umbilicus and Firm Rectal Exam Rectal Exam: Not Done Exam Patient deferred: perineal exam Perineum: Normal Extremities Exam Extremity Exam: Edema (1+ in feet, normal for PP state) Back/Spine/Pelvis Exam Back Exam: Not Done Skin Exam Skin Exam: Normal Neurological Exam Neurological Exam: Normal Psychiatric Exam Psychiatric Exam: Normal [facility] Medical History Labial irritation Vaginal discharge during in second trimester Family History Father Diabetes Hypertension Maternal Grandmother Muscular dystrophy Social History Smoking/Tobacco Use Status: Never Smoking risk assessment performed?: Yes Alcohol Intake: former Drug use: Never Substance use type: does not use Details: Alcohol use rarely prior to current occupation: ICU Nurse at [employer] Do you think of yourself as: straight/heterosexual Female Reproductive History Menstrual control method: natural family planning History History 1 Para 0 Hx # Term Pregnancies 0 Multiple births 0 Hx # Pregnancies 0 Ectopic pregnancies 0 AB induced 0 Hx Number of Living Children 0 AB spontaneous 0 DS: Data Vitals/I&O Vitals and I&O: Vital Signs Temperature 97.8 F 03/27/21 08:01 Pulse 85 03/27/21 08:01 Pulse Rhythm Regular 03/27/21 07:59 Respiratory Rate 16 03/27/21 08:01 Blood Pressure 123/84 03/27/21 08:01 Blood Pressure Mean 97 03/27/21 08:01 Pulse Oximetry 98 03/27/21 01:00 Pain Level 2 03/27/21 08:01 Intake & Output 03/26/21 03/26/21 03/27/21 11:59 23:59 11:59 Intake Total 1017.533 / 1017.533 Output Total 800 / 800 Balance 217.533 / 217.533 Intake: IV 1017.533 / 1017.533 Output: Urine 800 / 800 Other: Urine Color Yellow
[2021-03-27] MEDS: Docusate Sodium 100 MG CAP PO (10:22)
== END 2021-03-27 15:51 | disposition home or self-care (01) | DRG 807 ==
PROVIDERS: Admitting Provider Advanced Practice Midwife; PCP Nurse Practitioner Adult Health; Visit Provider Advanced Practice Midwife
DX: O16.4 Unspecified maternal hypertension, complicating childbirth (principal); Z37.0 Single live birth; O99.344 Other mental disorders complicating childbirth; F41.9 Anxiety disorder, unspecified; Z3A.39 39 weeks gestation of pregnancy; Z23 Encounter for immunization
CPT/HCPCS: 80053; 85027; 86850; 86900; 86901; 87635; 90471; 90686; 82565; 84156

== ENCOUNTER 2021-05-04 04:05 | Outpatient (CLI) | payer OTHER, SELFPAY ==
[2021-05-04 09:01] LABS: Abs Immature Grans 0.01 10^3/uL (0.0-0.06); Absolute Basophil Count 0.02 10^3/uL (0.0-0.2); Absolute Eosinophil Count 0.11 10^3/uL (0.0-0.7); Absolute Lymphocyte Count 2.45 10^3/uL (1.2-3.4); Absolute Monocyte Count 0.45 10^3/uL (0.1-0.8); Absolute Neutrophil Count 2.86 10^3/uL (1.2-6.7); Basophils % 0.3; Eosinophils % 1.9; HCT 40.8 % (36.0-46.0); Immature Grans % 0.2; Lymphocytes % 41.5; MCH 28.3 pg (27.0-33.0); MCHC 31.9 % (32.0-36.0); MCV 88.9 fL (80-95); MPV 9.5 fL (8.0-11.0); Monocytes % 7.6; Neutrophils % 48.5; Nucleated RBC 0 %; Platelet Count 313 10^3/uL (130-400); RBC 4.59 10^6/uL (3.93-5.22); RDW 13.4 % (11.7-14.6); RDW-SD 43.8 fL
== END 2021-05-04 04:06 | disposition home or self-care (01) ==
PROVIDERS: PCP Nurse Practitioner Adult Health; Visit Provider Advanced Practice Midwife
DX: N93.9 Abnormal uterine and vaginal bleeding, unspecified; Z39.2 Encounter for routine postpartum follow-up
CPT/HCPCS: 36415; 85025

== ENCOUNTER 2021-05-18 14:18 | Outpatient (REF) | payer OTHER, SELFPAY ==
--- NOTE | 2021-05-18 13:20 | PAPFT_PTH ---
PATIENT: Nataliya Castaneda LOC: [facility] U#:[id number] AGE/SX: 31/F ROOM: RE05/18/[address]: Antonella Morgan CNM : 1990 BED: DIS: 05/18/2021 SPEC #: [id number] RECD: 05/18/21 17:40 STATUS: KAITNA REQ #: [id number] ANTOINETTE: 05/18/21 13:[address]: Antonella Morgan DEPT: [facility] Cytology RECD BY: Julianne Ruiz ENTERED: 05/18/21 17:41 SP TYPE: PAPFT OTHR DR: Zenaida Aviles Tissues: 1 - CX/ENDOCX FOR PAP SMEARS Procedures: PAP THIN PREP/UVM Screening Comments: [id number] (CHLAMYDIA/GC)
[2021-05-19 14:28] LABS: Chlamydia Result Negative (Negative); GC Result Negative (Negative)
== END 2021-05-18 14:19 | disposition home or self-care (01) ==
LOC: LBN 14:18
PROVIDERS: PCP Nurse Practitioner Adult Health; Visit Provider Advanced Practice Midwife
DX: Z12.4 Encounter for screening for malignant neoplasm of cervix (principal); Z11.3 Encounter for screening for infections with a predominantly sexual mode of transmission
CPT/HCPCS: 87491; 87591; 88142

== ENCOUNTER 2021-06-16 04:19 | Outpatient (CLI) | payer OTHER, SELFPAY | END 2021-06-16 04:20 | disposition home or self-care (01) | LOC: LBO 04:19 | PROVIDERS: PCP Nurse Practitioner Adult Health; Visit Provider Advanced Practice Midwife ==

== ENCOUNTER 2022-04-27 11:24 | Day surgery (SDC) | payer OTHER, SELFPAY ==
[2022-04-27 11:51] VITALS: BP 126/87; PULSE 82; RESP 18; TEMP 36.5; O2SAT 100
--- NOTE | 2022-04-27 12:06 | PDOC.DSDIS_ITS ---
Date of service: 04/27/22 Time of Service: 12:06 Discharge Plan Disposition Patient Disposition: HOME Condition: Good Discharge Details Attending Provider: Bradley Pickard Primary Care Provider: Zenaida Aviles Home Meds and New Rx's Prescriptions: New acetaminophen 500 mg tablet 1,000 mg PO TID Qty: 90 0RF ibuprofen 600 mg tablet 600 mg PO TID PRN (Reason: pain) Qty: 90 0RF hydrocodone-acetaminophen 5-325 mg tablet 1 tab PO Q6H PRN (Reason: pain) Qty: 6 0RF Continued Adult Probiotic 3 billion cell capsule 3,000 mmu cells PO DAILY Rx Instructions: administer with a meal cholecalciferol (vitamin D3) 125 mcg (5,000 unit) tablet See Rx Instructions PO DAILY Rx Instructions: PO daily; docusate sodium [Colace] 100 mg capsule 100 mg PO BID PRN psyllium Packet 1 packet PO DAILY PRN Rx Instructions: mix into at least 8 oz of water or juice before administering ParaGard T 380A 380 square mm intrauterine device 1 device intrauterine ONCE Label Comments: Placed 05/18/2021; Lot [id number] EXP 10/09/26; [facility] [id number] Rx Instructions: as a single dose multivitamin Tablet 1 tab PO DAILY sertraline 50 mg tablet 50 mg PO DAILY Qty: 30 12RF Discharge Instructions Additional Instructions: Nathaniel's Discharge Instructions Activity: You should keep the hand elevated as much as possible for the first few days. You may use the other fingers as tolerated but avoid trying to do too much too soon. You may perform light activities with the splint in place. Dressing/Cast: Your soft splint should stay in place at all times. Do NOT get it wet. You may loosen the CHANTEL wrap if you feel it is too tight and then rewrap more loosely. If it gets soiled or unraveled,you may remove it and rewrap as needed to control excessive thumb motion. Medications: - You should take Tylenol and Ibuprofen for baseline pain control. - You have Hydrocodone for breakthrough pain. - You may apply ice over the thumb. Follow-up: 7-10 days Referrals: Bradley Pickard MD [ [facility] STAFF PHYSICIAN] - Activity:: Elevate Remove Dressings/Wound Care:: Do Not Remove Shower/Bathe:: Cover Diet:: As Tolerated Discharge Orders Discharge Orders: Discharge Order (Routine); Ordered 04/27/22 Ordered By: Vishnu Stanton DS: Diagnosis Discharge Diagnosis (1) De Quervain's tenosynovitis, right: Status: Acute
[2022-04-27] MEDS: Lactated Ringers 1,000 ML 80 ML IV (12:12)
--- NOTE | 2022-04-27 12:19 | ANES.PREOP_ITS ---
General Info Date of Service Date Performed: 04/27/22 Height: 5 ft 4 in Weight: 98.2 kg Body Mass Index (BMI): 37.1 Surgical Procedure: Operation Date: 04/27/22 14:40 Proposed Procedure Side Surgeon p Wrist Dequervains Release Right Bradley Pickard MD Meds Allergies and Home Medications Allergies Allergy/AdvReac Type Severity Reaction Status Date / Time No Known Allergies Allergy Unverified 04/26/22 07:43 Home Medication Medication Instructions Recorded lactobacillus combination no.8 3 3,000 mmu cells PO DAILY 07/27/20 billion cell capsule (Adult Probiotic) cholecalciferol (vitamin D3) 125 See Rx Instructions PO DAILY 08/12/20 mcg (5,000 unit) tablet docusate sodium 100 mg capsule 100 mg PO BID PRN 04/07/21 (Colace) psyllium 1 packet PO DAILY PRN 04/07/21 multivitamin 1 tab PO DAILY 05/03/21 copper 380 square mm intrauterine 1 device intrauterine ONCE 05/18/21 device (ParaGard T 380A) sertraline 50 mg tablet 50 mg PO DAILY #30 tabs 06/15/21 acetaminophen 500 mg tablet 1,000 mg PO TID #90 tabs 04/27/22 hydrocodone 5 mg-acetaminophen 325 1 tab PO Q6H PRN pain #6 tabs 04/27/22 mg tablet ibuprofen 600 mg tablet 600 mg PO TID PRN pain #90 tabs 04/27/22 Current Visit Medications: Current Medications Generic Name Dose Route Start Last Admin Trade Name Freq PRN Reason Stop Dose Admin Acetaminophen 650 mg 04/27/22 12:05 Acetaminophen 325 Mg Tab PO Q4H PRN PRN Hydrocodone Bitart/Acetaminophen 1 tab 04/27/22 12:08 Hydrocodone 5/Acetaminophen 325 Tab PO Q4H PRN PRN Ringer's Solution 1,000 mls @ 80 mls/hr 04/27/22 06:00 IV 04/27/22 23:59 INFUSION ERIC Cefazolin Sodium/Dextrose 2 gm in 50 mls @ 100 mls/hr 04/27/22 06:00 Ancef Duplex IVPB 04/27/22 23:59 PREOP ERIC IV Miscellaneous Supplies 1 each 04/27/22 06:00 Iv Access IV 04/27/22 23:59 DIRECTED ERIC Sodium Chloride 0 ml 04/27/22 06:00 Normal Saline Flush 10 Ml Syr IV 04/27/22 23:59 PRN PRN Sodium Chloride 0 ml 04/27/22 06:00 Normal Saline 10 Ml Vial IJ 04/27/22 23:59 DIRECTED PRN Sterile Water 0 ml 04/27/22 06:00 Water,Injection,Sterile 10 Ml Vial IJ 04/27/22 23:59 DIRECTED PRN PFSH Active Problems Active Problems: Problem Status Onset Code Encounter for screening for other viral diseases Z11.59 BMI 37.0-37.9, adult Z68.37 Maternal varicella, non-immune O09.899, Z28.3 Stage 1 hypertension I10 care following vaginal delivery Z39.2 Lactating mother Z39.1 Vagina bleeding N93.9 Anxiety as acute reaction to exceptional stress F41.1, F43.0 Encounter for IUD insertion Z30.430 Para-ovarian cyst Q50.5 De Quervain's tenosynovitis, right M65.4 Medical History Medical History Encounter for induction of labor Influenza vaccine needed Labial irritation Vaginal bleeding Vaginal discharge during in second trimester Surgical History Surgical History (Updated 04/27/22 @ 12:06 by SANTIAGO Navarrete) [place] teeth extracted Tobacco Smoking/Tobacco Use Status: Never Alcohol Alcohol Intake: current Alcohol intake frequency: a few times a month Alcohol type: wine Substance Use Substance use: Never Substance use type: does not use Prental History History 1 Para 1 Hx # Term Pregnancies 1 Multiple births 0 Hx # Pregnancies 0 Ectopic pregnancies 0 AB induced 0 Hx Number of Living Children 1 AB spontaneous 0 Past Pregnancies Del. Date GA/Weeks # Preg Succ Route Wgt Sex Labor Lgth Anesth esia Location Prov Complic 03/25/21 39 No vaginal 3685.438 g Female 8hrs 50min ANA MARIA Molina Delivery Date: 03/25/21 Last Updated by: Kanika Eubanks LPN Induced due to stage 1 HTN; Melanie Hurtado Vital Signs and Lab Results Vital Signs Most Recent Vital Signs in EMR: Most Recent Vital Signs Temp Pulse Resp BP Pulse Ox 36.5 C 82 18 126/87 100 04/27/22 11:51 04/27/22 11:51 04/27/22 11:51 04/27/22 11:51 04/27/22 11:51 Lab Results Blood Type / Crossmatch: No Data to Display Complete Blood Count: No Data to Display Complete Metabolic Panel: No Data to Display Liver Function Panel: No Data to Display Coagulation Panel: No Data to Display Cardiac Panel: No Data to Display Arterial Blood Gas: No Data to Display Venous Blood Gas: No Data to Display Pancreas Panel: No Data to Display Thyroid Panel: No Data to Display Infectious Disease: No Data to Display Blood Cultures: No Data to Display Toxicology Panel: No Data to Display Panel: No Data to Display Anesthesia Assessment and Plan Anesthesia History Personal History: No History of Anesthesia Complications and PONV Family History: No Family History of Anesthesia Complications Exercise Tolerance Exercise Tolerance: Metabolic Equivalents>4 Pertinent Negatives Pertinent Negatives: No Symptoms of GERD Cardiac & Pulmonary Exam Cardiac Exam: Normal S1/S2 Heart Sounds Pulmonary Exam: Clear Bilateral Breath Sounds Implantable Cardiac Device Does patient have a Pacemaker or an ICD?: No Airway Exam Known Difficult Airway: No Mallampati Class: 2 Mouth Opening: Normal (> 3cm) Thyromental Distance: Greater than 3 cm Neck Range of Motion: Full ROM Neck Circumference: Normal Teeth Condition: Normal Dentition ASA Classification ASA Score: ASA 2 Emergency Case?: No NPO Status NPO Status: NPO Clears >2 hours, Solids >8 hours Status Status: Negative HCG Anesthesia Plan Resuscitation Status: Full Code Anesthesia Technique: General Anesthesia Airway Planned: Natural Airway Monitors Used: Standard Monitors
[2022-04-27 12:23] VITALS: BMI 37.1
[2022-04-27] MEDS: ceFAZolin 2 GM/50 ML BAG IVPB (12:49)
[2022-04-27 13:20] VITALS: BP 118/60; PULSE 79; RESP 16; TEMP 36.1; O2SAT 97
--- NOTE | 2022-04-27 13:29 | W.ANESPOSTOP ---
Postoperative Evaluation Date, Time and Location Date Performed: 04/27/22 Time Performed: 13:30 Patient Location: Day Surgery Unit Vital Signs Most Recent Imported Vital Signs: Most Recent Vital Signs Temp Pulse Resp BP Pulse Ox 36.1 C L 79 16 118/60 97 04/27/22 13:20 04/27/22 13:20 04/27/22 13:20 04/27/22 13:20 04/27/22 13:20 Pain Score Most Recent Pain Score: Most Recent Pain Score Pain Level 0 04/27/22 13:20 Assessment Mental Status: Awake (Alert & Oriented to Patient Baseline) Airway and Respiratory Function: Patent airway with normal (patient baseline) respiratory exam Cardiovascular Function: Hemodynamically Stable Hydration Status: Adequately Hydrated Nausea & Vomiting: No Nausea or Vomiting Pain: Pt. Denies Any Pain Peripheral Nerve Block: Patient did not receive a nerve block
[2022-04-27 13:50] VITALS: BP 123/66; PULSE 72; RESP 16; TEMP 36.6; O2SAT 100
--- NOTE | 2022-04-27 21:24 | W.PM.OP ---
Date of service: 04/27/22 Time of Service: 12:45 Operative Note Operative Note DATE OF PROCEDURE: 04/27/22 PRE-OP DIAGNOSIS: Right Dequervain's Tenosynovitis POST-OP DIAGNOSIS: same PROCEDURE: Right First Extensor Compartment Release SURGEON: Bradley Pickard ANESTHESIA TYPE: General:No Airway Refer to Anesthesia Record ESTIMATED BLOOD LOSS: 0 PATHOLOGY: none sent TOURNIQUET TIME: 0 COMPLICATIONS: None Patient was transported to: same day Patient's condition: stable Indications: Nataliya is a 32 year old female who has had symptoms of Dequervain's tenosynovitis. Nonoperative treatment options had been trialed. Given their failure, I offered operative intervention. I reviewed the technical details of a first extensor compartment release. I reviewed the risk of the procedure to include bleeding, infection, pain, stiffness, tendon instability, damage to the superficial radial nerve, and complete release. Despite these risks, the patient elected to proceed. Findings: There was a tightened first excessive compartment. No subcompartments were seen encasing the EPB tendon. There were multiple slips of APL tendon. Procedure Description: Nataliya was greeted in the preoperative holding area. Name and surgical site were confirmed. The history and physical was completed. The consent was reviewed the patient and signed. She was taken back to the operating room. The patient was placed in the supine position and monitored anesthesia care was initiated. The right was then prepped with ChloraPrep and draped in a standard fashion after a nonsterile tourniquet was placed high up onto the arm. Prophylactic antibiotics in the form of cefazolin were administered. A timeout was performed for safe surgery. The surgical site was drawn on the skin. The planned surgical field was anesthetized with 0.25% bupivacaine with epinephrine. A 2 cm incision was made longitudinally over the radial styloid. The skin was incised only. The deep tissues and subcutaneous fat was dissected with a tenotomy scissors. Branches of the superficial radial nerve were protected. The first compartment extensor tendons were then identified. The distal aspect of the first compartment was noted and were released. This release was performed more on the dorsal side to prevent tendon subluxation. The entirety of the first extensor compartment was then released. The slips of the abductor pollicis longus tendon were inspected. They removed to confirm the appropriate motion of the thumb. The extensor pollicis brevis tendon was then identified. It was fully released. Traction on the tendon was also used to confirm appropriate extension of the thumb confirming the release of the appropriate tendon. The dorsal radial surface of the radius was once again inspected to make sure there is no other sub-compartments or other restrictions to tendon motion. The wound was then thoroughly irrigated. The deep tissue was closed with a 3-0 Vicryl. The skin was closed with a running subjective 4-0 Monocryl. Skin glue was applied. The hand was dressed with 4 x 4's, web roll, into a soft thumb spica splint. At the end of the case, all counts were correct. Patient was transferred back to same day surgery area in stable condition.
== END 2022-04-27 14:20 | disposition home or self-care (01) ==
PROVIDERS: PCP Nurse Practitioner Adult Health; Visit Provider Student in an Organized Health Care Education/Training Program
PROC: (CPT 25000; principal; 2022-04-27 14:30)
DX: M65.4 Radial styloid tenosynovitis [de Quervain] (principal)
CPT/HCPCS: 25000; J0690; J1885; J2250; J2405

== ENCOUNTER 2023-09-12 14:19 | Outpatient (CLI) | payer OTHER, SELFPAY ==
[2023-09-12 11:06] LABS: Abs Immature Grans 0.01 10^3/uL (0.0-0.06); Absolute Basophil Count 0.04 10^3/uL (0.0-0.2); Absolute Eosinophil Count 0.14 10^3/uL (0.0-0.7); Absolute Lymphocyte Count 2.65 10^3/uL (1.2-3.4); Absolute Monocyte Count 0.42 10^3/uL (0.1-0.8); Absolute Neutrophil Count 3.61 10^3/uL (1.2-6.7); Basophils % 0.6; HCT 40.3 % (36.0-46.0); HGB 13.1 g/dL (11.2-15.7); Immature Grans % 0.1; Lymphocytes % 38.6; MCH 29.4 pg (27.0-33.0); MCHC 32.5 % (32.0-36.0); MCV 90 fL (80-95); MPV 9.6 fL (8.0-11.0); Monocytes % 6.1; Neutrophils % 52.6; Platelet Count 309 10^3/uL (130-400); RBC 4.46 10^6/uL (3.93-5.22); RDW 12.6 % (11.7-14.6); RDW-SD 41.7 fL; WBC 6.87 10^3/uL (4.4-10.8)
[2023-09-12 11:24] LABS: Hemoglobin A1C 5.7 % (<5.7)
[2023-09-12 11:58] LABS: ALT 21 U/L (14-59); AST 10 U/L (15-37); Alkaline Phosphatase 48 U/L (46-116); Anion Gap 10.6 mmol/L (3-11); BUN 14 mg/dL (7-18); Bilirubin, Total 0.3 mg/dL (0.2-1.0); CO2 26.4 mmol/L (21.0-32.0); CREATININE 0.8 mg/dL (0.55-1.02); Calculated LDL 107 mg/dL (<100); Chloride 105 mmol/L (98-107); Cholesterol 182 mg/dL (<200); Estimated GFR 100.96 (mL/min/1.73m2); Glucose 104 mg/dL (74-106); HDL Cholesterol 60 mg/dL (40-60); Potassium 4.1 mmol/L (3.5-5.1); Sodium 142 mmol/L (136-145); TSH (W/Ref FT4) 1.28 uIU/mL (0.36-3.74); Total Protein 7.9 g/dL (6.4-8.2); Triglyceride 75 mg/dL (<150)
== END 2023-09-12 14:20 | disposition home or self-care (01) ==
LOC: LBO 09-21 14:19
PROVIDERS: PCP Nurse Practitioner; Visit Provider Nurse Practitioner
DX: J45.909 Unspecified asthma, uncomplicated (principal); E66.01 Morbid (severe) obesity due to excess calories; Z13.220 Encounter for screening for lipoid disorders; E11.9 Type 2 diabetes mellitus without complications
CPT/HCPCS: 36415; 80053; 80061; 83036; 84443; 85025

== ENCOUNTER 2024-12-19 12:26 | Emergency (ER) | payer OTHER, SELFPAY ==
[2024-12-19 12:30] VITALS: BP 135/87; PULSE 73; RESP 16; TEMP 36.8; O2SAT 98
--- NOTE | 2024-12-19 12:36 | ED.GENADUL_ITS ---
Discharge Plan Disposition Patient Disposition: Home Discharge Details Clinical Impression: Closed fracture of left talus Primary Care Provider: [facility] ED Provider: Rishabh Contreras Home Meds and New Rx's Prescriptions: Continued Adult Probiotic 3 billion cell capsule 3,000 mmu cells PO DAILY Rx Instructions: administer with a meal cholecalciferol (vitamin D3) 50 mcg (2,000 unit) capsule 50 mcg PO DAILY venlafaxine 75 mg capsule,extended release 24hr 75 mg PO DAILY Qty: 90 3RF ParaGard T 380A 380 square mm intrauterine device 1 device intrauterine ONCE Patient Comments: Placed 05/18/2021; Lot [id number] EXP 10/09/26; [facility] [address]-4 Rx Instructions: as a single dose multivitamin Tablet 1 tab PO DAILY semaglutide (weight loss) 1 mg/0.5 mL pen injector 1 mg subcut QWEEK Qty: 2 1RF Rx Instructions: administer weeks 5 through 8 of therapy Discharge Instructions Additional Instructions: You were seen in the emergency department for your foot pain. Your CT scan was concerning for the possibility of a fracture but orthopedics also felt that the abnormalities on CT scan could be from a bruise. Please walk on your foot gently wearing this tall boot. You may bear weight. You may use crutches as needed. You should remove the boot daily when resting for skin care and gentle thuy range of motion. Please follow-up with orthopedic team by calling the number below. Please return to the emergency department if you develop worsening pain, Cannot Feel Your Foot or have any other concerns. For your pain please take medications as follows: 1. Take acetaminophen (Tylenol), 1,000 mg (two 500 mg tabs) every 6 hours [2. Take ibuprofen (Advil), 400 mg every 6 hours.] Referrals: [facility] [Provider Group] HPI General Date/Time Provider Initiated Documentation: 12/19/24 12:35 . HPI Narrative: MDM This is an overall well-appearing normothermic and not tachycardic 34-year-old female with left medial foot pain ecchymosis concerning for the possibility of fracture for which patient will undergo x-rays. If x-rays are reassuring we will consider CT scan given trauma with worsening pain and bruising. No pain or proportion to suggest necrotizing soft tissue infection. Left foot warm well- perfused and not concern for critical limb ischemia so I do not feel that the patient requires a CT angiogram of her lower extremities. No rash to foot to suggest zoster. No midfoot instability to suggest Lisfranc injury. No left lateral foot tenderness to suggest Finnegan fracture. No erythema to suggest cellulitis. No fluctuance to suggest abscess. No history of gouty arthritis to suggest gout. Will reassess following x-ray and CT if x-rays are negative for any acute osseous abnormalities. 4:28 PM Patient had a normal reassuring x-ray. Given her significant tenderness and ecchymosis I increased sensitivity with CT. Radiology was concerned for the possibility of a talar fracture. I had asked Dr. Tavera from podiatry to review the films. Patient requested orthopedic follow-up. I was in touch with Dr. Disla who reviewed the films. She reported that the patient would be able to be weightbearing as tolerated gently with a tall walking boot which I ordered. Will instruct the patient on taking her foot out of the boot for gentle ankle range of motion exercises while at home. 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 Patient and I discussed that she should return for any worsening pain inability move her foot or any other concerns. Dr. Disla requested ankle films which I ordered which were reassuring. HPI This is a patient presenting with left foot pain. The patient sustained an injury to the left foot 4 days ago during a softball game when a line drive hit the foot. She sought medical attention that same night, where she was provided with an orthopedic shoe and informed that the x- ray results were normal. However, she was advised to seek further evaluation if her condition did not improve. She has been experiencing difficulty bearing weight on the affected foot and reports that the orthopedic shoe has not been beneficial. She has been attempting to rest the foot as much as possible. She has no history of surgeries on the ankle and reports normal sensation in her toes. The most severe pain is located under her foot and radiates both upwards and downwards. She has not sustained any other injuries since the initial incident. She has been managing the pain with Tylenol and ibuprofen. Exam General: Well-appearing in no acute distress speaking in complete sentences. Head: Normocephalic, atraumatic. Eye: Extraocular eye movements intact. No conjunctival injection. No scleral icterus. Ear, nose, mouth, throat: Grossly normal inspection. Normal voice, handling secretions normally. Neck: Trachea midline. Cardiovascular: Well-perfused distal extremities. Respiratory: Nonlabored respiration. Gastrointestinal: Nondistended abdomen. Musculoskeletal: On inspection of the left lower extremity there is ecchymosis overlying the medial malleolus. There is no obvious deformities. No midfoot instability. Cap refill less than 2 seconds in the left toes. Intact PT and DP pulses left foot. Skin: Normal for age and race, grossly normal temperature and turgor. No acute rash. Neurologic: Alert and appropriate, no apparent acute deficits. GCS 15. Related Data Home Medications ?Medication ?Instructions ?Recorded ?Confirmed lactobacillus combination no.8 3 3,000 mmu cells PO DA VICKIE 07/27/20 12/19/24 billion cell capsule (Adult Probiotic) multivitamin 1 tab PO DAILY 05/03/2112/10 copper 380 square mm intrauterine 1 device intrauterin e ONCE 05/18/21 12/19/24 device (ParaGard T 380A) cholecalciferol (vitamin D3) 50 50 mcg PO DAILY 12/19/24 mcg (2,000 unit) capsule venlafaxine 75 mg capsule,extended 75 mg PO DAILY #90 caps 09/12/23 12/19/24 release 24 hr semaglutide (weight loss) 1 mg/0.5 1 mg (0.5 mL) subcu t QWEEK #2 mL 12/05/23 12/19/24 mL subcutaneous pen injector Previous Rx's ?Medication ?Instructions ?Recorded venlafaxine 75 mg capsule,extended 75 mg PO DAILY #90 caps 09/12/23 release 24 hr semaglutide (weight loss) 1 mg/0.5 1 mg (0.5 mL) subcu t QWEEK #2 mL 12/05/23 mL subcutaneous pen injector Allergies Allergy/AdvReac Type Severity Reaction Status Date / Time No Known Allergies Allergy Verified 12/19/24 12:32 General Stated Complaint: Orthopedic JOEL: 4 Course Vital Signs Vital signs: Vital Signs Temperature 36.8 C 12/19/24 12:30 Pulse 73 12/19/24 12:30 Respiratory Rate 16 12/19/24 12:30 Blood Pressure 135/87 12/19/24 12:30 Pulse Oximetry 98 12/19/24 12:30 Temperature 36.8 C 12/19/24 12:30 Temperature Source Oral 12/19/24 12:30 Pulse 73 12/19/24 12:30 Respiratory Rate 16 12/19/24 12:30 Blood Pressure 135/87 12/19/24 12:30 Blood Pressure Position Sitting 12/19/24 12:30 Pulse Oximetry 98 12/19/24 12:30 Oxygen Delivery Method Room Air 12/19/24 12:30 Oxygen Flow Rate 0 12/19/24 12:30 Pain Level 6 12/19/24 12:30 PFSH All Active Problems (Updated 09/05/23 @ 11:41 by Alexa Camacho) Closed fracture of left talus (Acute) Obesity, Class III, BMI 40-49.9 (morbid obesity) (Acute) BMI 37.0-37.9, adult (Acute) Maternal varicella, non-immune (Acute) Stage 1 hypertension (Acute) care following vaginal delivery (Acute) Lactating mother (Acute) Vagina bleeding (Acute) Anxiety as acute reaction to exceptional stress (Acute) Encounter for IUD insertion (Acute) Para-ovarian cyst (Acute) De Quervain's tenosynovitis, right (Acute) S/P Release: 04/27/2022 Medical History (Updated 12/19/24 @ 15:22 by Rishabh Contreras MD) Vaginal bleeding Influenza vaccine needed Encounter for induction of labor Vaginal discharge during in second trimester Labial irritation Surgical History (Updated 09/05/23 @ 11:41 by Alexa Camacho) Status post de Quervain's release surgery [place] teeth extracted Family History (Updated 09/05/23 @ 11:38 by Alexa Camacho) Father Diabetes Hypertension Maternal Grandmother Muscular dystrophy Mother Anxiety Asthma Depression Paternal Grandfather Cancer Diabetes Paternal Grandmother Heart disease Social History (Updated 09/12/23 @ 10:06 by Lola Sood LPN) Smoking/Tobacco Use Status: Never Smoking risk assessment performed?: Yes Alcohol Intake: current Alcohol Intake frequency: holidays/special occasions only Alcohol type: wine Drug use: Never Substance use type: does not use Adopted: No Caregiver/Support person: No Household members: spouse and children Housing: house Number of Children: 1 Communication Needs: None Education Level: college Do you need help understanding health information?: Never current occupation: ICU Nurse at [employer] Pets and animals: Yes (3 cats, 1 dog) Pets and animals: cat(s) and dog(s) Sexually active: Yes Do you think of yourself as: straight/heterosexual Current gender identity: female What is your relationship status?: How often do you talk on the phone with friends or family?: three or more times per week How often do you get together with friends or relatives?: three or more times per week Do you belong to any clubs or organized social groups?: no Panel score (0-1 are the most socially isolated patients): 2 What type of physical activity do you participate in: walking Duration: 15-30 minutes/day Frequency: daily Janeth/Confucianist: Roman Catholic Special janeth needs: No Seatbelt use: always Helmet use: Yes Drive intox or ride w/intox team truck driver: No Do you feel safe at home: Yes Do you feel safe in your relationship?: Yes Female Reproductive History Menstrual control method: natural family planning History History 1 Para 1 Hx # Term Pregnancies 1 Multiple births 0 Hx # Pregnancies 0 Ectopic pregnancies 0 AB induced 0 Hx Number of Living Children 1 AB spontaneous 0 Past Pregnancies Del. Date GA/Weeks # Preg Succ Route Wgt Sex Labor Lgth Anesth esia Location Prov Complic 03/25/21 39 No vaginal 3685.438 g Female 8hrs 50min ANA [facility] Molina Delivery Date: 03/25/21 Last Updated by: Kanika Eubanks LPN Induced due to stage 1 HTN; Melanie Hurtado
--- NOTE | 2024-12-19 12:37 | DI.RAD_ITS ---
Exam(s) XR FOOT LT COMPLETE EXAM: XR FOOT LT COMPLETE CLINICAL HISTORY: L foot pain. TECHNIQUE: 2D digital imaging was performed. COMPARISON: No exams were available for comparison FINDINGS: 3 views No evidence of acute fracture or diastasis of the Lisfranc joint. Great toe metatarsophalangeal joint appears unremarkable as do the other articulations of the foot. Tiny inferior calcaneal spur noted. No degenerative changes. No radiopaque foreign bodies. No osseous lesions. IMPRESSION: No significant acute osseous findings in the left foot. DATA REPOSITORY: RADIATION DOSE DELIVERED:
--- NOTE | 2024-12-19 13:45 | DI.CT_ITS ---
Exam(s) CT LOWER EXTREMITY LT WO EXAM: CT LOWER EXTREMITY LT WO CLINICAL HISTORY: Left foot pain. TECHNIQUE: Imaging Protocol: Axial computed tomography images with coronal and sagittal reformatted images were created and reviewed. CONTRAST MATERIAL: Noncontrast COMPARISON: CR XR FOOT LT COMPLETE from 12/19/2024 FINDINGS: The exam is limited by technical artifact. Bones: There is a small nondisplaced fracture at the anterolateral aspect of the talus without involvement of the talar dome. There is a slight defect at the anteromedial aspect of the talus which could represent additional fracture. There is a tiny bony fragment adjacent to the distal fibula also suspicious for fracture. No cellulitic or osteomyelitic changes are identified. No lytic or sclerotic lesions are identified. Joints: There is no significant joint space narrowing. No significant periarticular spurring. Soft Tissues: Mild edema in the subcutaneous fat. No gross evidence of tendon disruption. No hematoma in the musculature. There is fluid in the talocalcaneal joint. There are two small fluid collections extending posteriorly from the talocalcaneal joint. There is also a fluid collection extending inferiorly, medial to the calcaneus. These could represent synovial cyst versus ganglion cysts versus posttraumatic fluid collections. IMPRESSION: Small fracture fragment at the anterolateral and anteromedial aspects of the talus without involvement of the talar dome small fracture fragment at the anterior aspect of the distal fibula near the same level. Fluid in the talocalcaneal joint with fluid collections extending posteriorly and medially. Findings were discussed with Dr. Contreras of the emergency department. RADIATION DOSE DELIVERED: Total DLP DATA REPOSITORY: All CT scans at this facility are submitted to the National Radiology Data Registry (NRDR) Dose Index Registry (DIR) with the [employer] (ACR). RADIATION OPTIMIZATION: All CT scans at this facility use at least one of these dose optimization techniques: automated exposure control; mA and/or kV adjustment per patient size (includes targeted exams where dose is matched to clinical indication); or iterative reconstruction.
--- NOTE | 2024-12-19 15:15 | DI.RAD_ITS ---
Exam(s) XR ANKLE LT COMPLETE EXAM: XR ANKLE LT COMPLETE CLINICAL HISTORY: foot pain. abd CT TECHNIQUE: 2D digital imaging was performed. Three views. COMPARISON: No exams were available for comparison FINDINGS: BONES: No acute fracture is visible. Please see separate CT report. No bony destructive lesion is seen. JOINTS:The ankle mortise is normally aligned. SOFT TISSUE: Swelling beneath the malleoli. IMPRESSION: No fracture is visible. DATA REPOSITORY: RADIATION DOSE DELIVERED:
--- NOTE | 2024-12-19 15:32 | NUR.NOTE ---
Call received from [facility]. Patient scheduled for Monday01/01/2025 at 1315. Nursing Note:
== END 2024-12-19 16:16 | disposition home or self-care (01) ==
PROVIDERS: Emergency Provider Emergency Medicine; PCP Nurse Practitioner
DX: S92.145A Nondisplaced dome fracture of left talus, initial encounter for closed fracture (principal); Z79.899 Other long term (current) drug therapy; W21.07XA Struck by softball, initial encounter; Y93.64 Activity, baseball; Y92.320 Baseball field as the place of occurrence of the external cause
CPT/HCPCS: 99284; 73610; 73630; 73700

== ENCOUNTER 2025-01-01 13:47 | Outpatient (CLI) | payer OTHER, SELFPAY ==
--- NOTE | 2025-01-01 13:00 | DI.RAD_ITS ---
Exam(s) XR ANKLE LT COMPLETE EXAM: XR ANKLE LT COMPLETE CLINICAL HISTORY: F/U L TALUS FX TECHNIQUE: 2D digital imaging was performed. Three views. COMPARISON: CR XR ANKLE LT COMPLETE from 12/19/[address] LOWER EXTREMITY LT WO from 12/19/2024 CR XR FOOT LT COMPLETE from 12/19/2024 FINDINGS: BONES: The small fractures at the anterior aspect of the talus noted on CT are not visible on the current plain films. There is a tiny bony fragment beneath the lateral malleolus. No bony destructive lesion is seen. JOINTS:The ankle mortise is normally aligned. SOFT TISSUE: Mild swelling. IMPRESSION: The previously noted talar fractures on CT are not visible on the current exam. No new findings. DATA REPOSITORY: RADIATION DOSE DELIVERED:
== END 2025-01-01 13:48 | disposition home or self-care (01) ==
LOC: DIORS 13:47
PROVIDERS: PCP Nurse Practitioner; Visit Provider Student in an Organized Health Care Education/Training Program
DX: S92.102A Unspecified fracture of left talus, initial encounter for closed fracture (principal)
CPT/HCPCS: 73610